=== PATIENT | female | born 1940 | race Caucasian/White ===

== ENCOUNTER 2017-05-08 18:14 | Emergency (ER) | payer OTHER, BC ==
[2017-05-08 18:29] VITALS: BP 132/59; PULSE 70; TEMP 98.8; BMI 33.5
--- NOTE | 2017-05-08 19:18 | PDOC ---
History of Present Illness - History of Present Illness Initial Comments: 05/08/17 19:18 The patient is a 77 year old female, with a significant past medical history of , who presents to the emergency department with right ankle pain and swelling for 2 days. She states she was going to bed on Sunday when she developed pain to her right ankle. The patient denies trauma. She reports her swelling has reduced after taking Aleve today. She denies any recent travels. She denies history of blood clots. She denies chest pain, shortness of breath, headache and dizziness. She denies fever, chills, nausea, vomit, diarrhea and constipation. She denies dysuria, frequency, urgency and hematuria. PCP - Dr. Robison PAST MEDICAL HISTORY: no significant history PAST SURGICAL HISTORY: no significant history FAMILY HISTORY: no pertinent history SOCIAL HISTORY: Pt lives with family and is employed. MEDICATIONS: reviewed ALLERGIES: As per nursing notes Adult ROS General: No fevers or chills, no weakness, no weight loss HEENT: No change in vision. No sore throat,. No ear pain CardioVascular: No chest pain or shortness of breath Respiratory:No cough, or wheezing. Gastrointestinal: no nausea, vomiting, diarrhea or constipation, No rectal bleeding Genitourinary: No dysuria, hematuria, or frequency Musculoskeletal: (+) right ankle pain and swelling. No joint or muscle pain or swelling Neurologic: No headache, vertigo, dizziness or loss of consciousness Psychiatric: nor depression Skin: No rashes or easy bruising Endocrine: no increased thirst or abnormal weight change Allergic: no skin or latex allergy All other systems reviewed and normal Adult Exam: General: Well-nourished well-developed individual, no acute distress HEENT: Throat: Normal, tonsils normal, no erythema or exudate Neck: Supple, no meningeal signs, no lymphadenopathy Eyes::Pupils equal reactive and round, extraocular motion intact Chest: Nontender to palpation Cardiac: S1-S2 normal, regular rate and rhythm, no murmurs rubs or gallops Respiratory: Lungs clear to auscultation bilateral Abdomen: Soft, nondistended, normal bowel sounds, nontender to palpation diffusely Extremities: (+) Mild swelling to the right foot, ankle and lower leg. Mild increase in warmth to her right ankle when compared to the left. No tender palpable cord. Pulses are normal. Warm, dry, no cyanosis, clubbing Skin: No rashes Neuro: Alert and oriented x3, nonfocal exam, grossly intact, normal gait Psych: Normal mood and affect <Ana Cabrera - Last Filed: 05/08/17 20:11> - General History Source: Patient Exam Limitations: No Limitations - History of Present Illness Initial Comments: 05/08/17 20:18 A portion of this note was documented by scribe services under my direction. I have reviewed the details of the note, within reason, and agree with the documentation. The case summary and management plan written by me. Assessment and plan: This is a 77-year-old female who comes in complaining of right lower extremity swelling and discomfort. 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 Patient also has a mildly elevated white count but no left shift. However patient's lower extremity is slightly warmer but no erythema. I will start patient on some Bactrim DS in case there is an early cellulitis and the patient has a primary care doctor she can follow-up with. <Janet Vega I - Last Filed: 05/08/17 20:31> - General Chief Complaint: Pain Stated Complaint: RT ANKLE, RT FOOT PAIN, SWELLING Time Seen by Provider: 05/08/17 19:02 Past History <Ana Cabrera - Last Filed: 05/08/17 20:11> - Past Medical History Anemia: No Asthma: Yes Cancer: Yes (THYROID?) Cardiac Disorders: No CVA: No COPD: No CHF: No Dementia: No Diabetes: Yes GI Disorders: Yes (GERD H/O COLONIC POLYP) Disorders: Yes (UTI) HTN: Yes Hypercholesterolemia: Yes Liver Disease: Yes (FATTY LIVER) Seizures: No Thyroid Disease: Yes - Surgical History Abdominal Surgery: Yes Appendectomy: No Cardiac Surgery: No Cholecystectomy: No Lung Surgery: No Neurologic Surgery: No Orthopedic Surgery: No - Psycho/Social/Smoking Cessation Hx Anxiety: No Suicidal Ideation: No Smoking Status: No Smoking History: Never smoked Have you smoked in the past 12 months: No Number of Cigarettes Smoked Daily: 0 Cigars Per Day: 0 Information on smoking cessation initiated: No Hx Alcohol Use: No Drug/Substance Use Hx: No Substance Use Type: None Hx Substance Use Treatment: No <Janet Vega I - Last Filed: 05/08/17 20:31> - Past Medical History Allergies/Adverse Reactions: Allergies Allergy/AdvReac Type Severity Reaction Status Date / Time clarithromycin [From Biaxin] Allergy Mild Itching Verified 05/08/17 18:17 ketorolac Allergy Mild Itching Verified 05/08/17 18:17 nitrofurantoin Allergy Verified 05/08/17 18:17 [From Macrobid] nitrofurantoin Allergy Verified 05/08/17 18:17 macrocrystalline [From Macrobid] Home Medications: Ambulatory Orders Amlodipine Besylate [Norvasc -] 10 mg PO DAILY 05/08/17 Aspirin [Aspirin EC] 81 mg PO DAILY 05/08/17 Benazepril/Hydrochlorothiazide [Benazepril-Hctz 20-12.5 mg Tab] 1 each PO BID Escitalopram Oxalate [Lexapro -] 10 mg PO DAILY 05/08/17 Esomeprazole Magnesium [Nexium 24Hr] 40 mg PO DAILY 05/08/17 Losartan Potassium [Cozaar] 100 mg PO DAILY 05/08/17 Meclizine HCl 25 mg PO TID 05/08/17 Metformin HCl [Metformin HCl ER] mg PO BID 05/08/17 Metoprolol Succinate [Toprol Xl] 50 mg PO DAILY 05/08/17 Phenobarb/Hyoscy/Atropine/Scop [ Elixir] 1 tsp PO Q4H PRN 05/08/17 Simvastatin 20 mg PO DAILY 05/08/17 Sulfamethoxazole/Trimethoprim [Bactrim DS -] 1 tab PO BID #14 tablet 05/08/17 *Physical Exam - Vital Signs Last Vital Signs Temp Pulse Resp BP Pulse Ox 98.8 F 70 18 132/59 96 05/08/17 18:15 05/08/17 18:15 05/08/17 18:15 05/08/17 18:15 05/08/17 18:15 <Ana Cabrera - Last Filed: 05/08/17 20:11> - Vital Signs Last Vital Signs Temp Pulse Resp BP Pulse Ox 98.8 F 70 18 132/59 96 05/08/17 18:15 05/08/17 18:15 05/08/17 18:15 05/08/17 18:15 05/08/17 18:15 <Janet Vega I - Last Filed: 05/08/17 20:31> ED Treatment Course - LABORATORY CBC & Chemistry Diagram: 05/08/17 17:30 - RADIOLOGY Radiograph Interpretation: 05/08/17 20:11 RLE venous doppler was negative for DVT at this time, however, there is evidence ofedema at the foot and two Hernandez's cysts. <Shaina Cabreraanda - Last Filed: 05/08/17 20:11> - LABORATORY CBC & Chemistry Diagram: 05/08/17 17:30 <Janet Vega I - Last Filed: 05/08/17 20:31> *DC/Admit/Observation/Transfer <Shaina Cabreraanda - Last Filed: 05/08/17 20:11> - Discharge Dispostion Admit: No <Janet Vega I - Last Filed: 05/08/17 20:31> Diagnosis at time of Disposition: Right leg swelling - Discharge Dispostion Disposition: HOME Condition at time of disposition: Stable - Prescriptions Prescriptions: Sulfamethoxazole/Trimethoprim [Bactrim DS -] 1 tab PO BID #14 tablet - Referrals Referrals: Nicola An MD [Primary Care Provider] - - Patient Instructions Additional Instructions: Try to elevate the leg as much as possible. Take Bactrim 1 tablet twice a day for for the next week. Follow-up with your primary care DrJudy next week if not improved. Return to the emergency department immediately with ANY new, persistent or worsening symptoms. Continue any medications as previously prescribed by your physician. You should follow up with your primary doctor as soon as possible regarding today's emergency department visit. . Please make sure your doctor reviews the results of your emergency evaluation. Thank you for coming to the Emergency Department today for your care. It was a pleasure to see you today. Please note that your evaluation is INCOMPLETE until you follow-up with your doctor.
[2017-05-08 20:05] LABS: BASOPHIL 0.6 % (0-2.0); EOSINOPHIL 1.4 % (0-4.5); MCH 28.1 pg (25.7-33.7); MCHC 33.7 g/dl (32.0-36.0); MEAN CELL VOLUME 83.4 fl (80-96); MEAN PLT VOLUME 8.5 fl (7.5-11.1); PLATELET COUNT 322 K/MM3 (134-434); RDW 13.6 % (11.6-15.6)
[2017-05-08] MEDS ORDERED: SULFAMETHOXAZOLE/TRIMETHOPRIM 800MG/160MG D.S. TABLET PO ONE (20:25)
[2017-05-08] MEDS ORDERED: SULFAMETHOXAZOLE/TRIMETHOPRIM 800MG/160MG D.S. TABLET ONE (20:26)
== END 2017-05-08 20:35 | disposition home or self-care (01) ==
LOC: FER 18:14
DX: M79.89 Other specified soft tissue disorders (principal); J45.909 Unspecified asthma, uncomplicated; K21.9 Gastro-esophageal reflux disease without esophagitis; I10 Essential (primary) hypertension; Z87.440 Personal history of urinary (tract) infections
CPT/HCPCS: 36415; 85025; 93971-TC; 99283-25

== ENCOUNTER 2017-12-18 20:03 | Emergency (ER) | payer OTHER, BC ==
[2017-12-18 20:12] VITALS: BMI 33.7
--- NOTE | 2017-12-18 20:12 | PDOC ---
History of Present Illness - General History Source: Patient Exam Limitations: No Limitations - History of Present Illness Initial Comments: 12/18/17 21:12 The patient is a 77 year old female with a significant past medical history of hernandez's cyst (few months ago) , arthritis, diabetes and cortisone knee shots who presents to the emergency department with acute right knee pain since yesterday. The patient reports that her right knee pain was a 10/10 in severity last night . She reports that she took 3 aleve pills with little relief.The patient reports taking her temperature at home and recorded it to be 101. It is noted that the patient uses a walking cane. The patient also reports right sinus pain with discharge. The patient denies any other complaints. PAST MEDICAL HISTORY: Arthritis, diabetes, cortisone knee shots PAST SURGICAL HISTORY: no significant history FAMILY HISTORY: no pertinent history SOCIAL HISTORY: none reported MEDICATIONS: As per nursing notes ALLERGIES: Clarithromycin, Ketorolac, Nitrofurantoin, Nitrofurantoin macrocystalline General: (+)fever . No chills, no weakness, no weight loss HEENT: (+) sinus pain.No change in vision. No sore throat,. No ear pain CardioVascular: No chest pain or shortness of breath Respiratory:No cough, or wheezing. Gastrointestinal: no nausea, vomiting, diarrhea or constipation, No rectal bleeding Genitourinary: No dysuria, hematuria, or frequency Musculoskeletal:(+) acute right knee pain No joint or muscle pain or swelling Neurologic: No headache, vertigo, dizziness or loss of consciousness Psychiatric: nor depression Skin: No rashes or easy bruising Endocrine: no increased thirst or abnormal weight change Allergic: no skin or latex allergy All other systems reviewed and normal General: Well-nourished well-developed individual, no acute distress HEENT: (+) tenderness on palpation of right frontal sinus. Throat: Normal, tonsils normal, no erythema or exudate Neck: Supple, no meningeal signs, no lymphadenopathy Eyes::Pupils equal reactive and round, extraocular motion intact Chest: Nontender to palpation Cardiac: S1-S2 normal, regular rate and rhythm, no murmurs rubs or gallops Respiratory: Lungs clear to auscultation bilateral Abdomen: Soft, nondistended, normal bowel sounds, nontender to palpation diffusely Extremities: (+) moderate edema from the knee down of the right lower extremity. Increased warmth with edema and tenderness to palpation anteriorly and medially . Palpable fullness in posterior knee that is not tender. Warm, dry, no cyanosis, or clubbing. Skin: No rashes Neuro: Alert and oriented x3, nonfocal exam, grossly intact, normal gait Psych: Normal mood and affect <Cinthya Angel - Last Filed: 12/18/17 21:12> - General History Source: Patient Exam Limitations: No Limitations - History of Present Illness Initial Comments: Medical decision making: This is a 77-year-old female who comes in complaining of right knee pain, thick greenish discharge from her sinuses, sinus pain and fevers. Patient was noted to have a fever here in the emergency room of 100.7. Will obtain workup including CBC, comp, PT, PTT, chest x-ray, EKG, Doppler ultrasound of the right knee, blood cultures, urine, urine cultures, Well hydrate patient with some gentle hydration at 200 mL per hour of normal saline Will medicate patient's pain with IV Tylenol Will reassess and reevaluate results of workup 12/18/17 22:04 Patient feels better post IV Tylenol. Patient ultrasound Doppler pending. Patient does have a mildly elevated white count of 13,000 but no left shift. Patient has been afebrile since she received the IV Tylenol 12/18/17 23:17 Reevaluation patient wants to go home, feels much better Assessment and plan: This is 68-year-old female who comes in complaining of a fever sinus discomfort and green discharge as well as some right knee pain. On my exam patient does have tenderness over her frontal and right maxillary sinuses. She was also noted to have a temperature 100.7 here in the emergency room. Patient is a cub-[id number]-xpcryyfty diabetic Her white count was mildly elevated but there was no left shift Her lactic acid was normal Patient was given some hydration and IV Tylenol and is back to her baseline. Ultrasound Doppler was done of the leg to rule out DVT there is a large Hernandez cyst but otherwise no DVT. On my exam the knee had some increase in warmth however patient said that the knee has been warm and painful over the last several weeks and she recently did receive a injection of steroids which were helping. I think most likely the knee is warm due to inflammation and not an infectious process. However I did tell patient I want her orthopedist who is treating her for the knee pain to evaluate her knee tomorrow as he knows how it has been over the past several weeks. Patient was given ceftriaxone IV antibiotics for her sinusitis and her urinary tract infection. Patient discharged home on Augmentin which should cover both the urine and the sinuses. Patient will be discharged home and follow-up with her primary care doctor <Janet Vega I - Last Filed: 12/18/17 23:26> - General Chief Complaint: Pain Stated Complaint: right leg pain,dry cough Time Seen by Provider: 12/18/17 20:06 Past History <Cinthya Angel - Last Filed: 12/18/17 21:12> - Past Medical History Anemia: No Asthma: Yes Cancer: Yes (THYROID?) Cardiac Disorders: No CVA: No COPD: No CHF: No Dementia: No Diabetes: Yes GI Disorders: Yes (GERD H/O COLONIC POLYP) Disorders: Yes (UTI) HTN: Yes Hypercholesterolemia: Yes Liver Disease: Yes (FATTY LIVER) Seizures: No Thyroid Disease: Yes - Surgical History Abdominal Surgery: Yes Appendectomy: No Cardiac Surgery: No Cholecystectomy: No Lung Surgery: No Neurologic Surgery: No Orthopedic Surgery: No - Suicide/Smoking/Psychosocial Hx Smoking Status: No Smoking History: Never smoked Have you smoked in the past 12 months: No Number of Cigarettes Smoked Daily: 0 Cigars Per Day: 0 Hx Alcohol Use: No Drug/Substance Use Hx: No Substance Use Type: None Hx Substance Use Treatment: No <Janet Vega I - Last Filed: 12/18/17 23:26> - Past Medical History Allergies/Adverse Reactions: Allergies Allergy/AdvReac Type Severity Reaction Status Date / Time clarithromycin [From Biaxin] Allergy Mild Itching Verified 12/18/17 20:07 ketorolac Allergy Mild Itching Verified 12/18/17 20:07 nitrofurantoin Allergy Verified 12/18/17 20:07 [From Macrobid] nitrofurantoin Allergy Verified 12/18/17 20:07 macrocrystalline [From Macrobid] morphine AdvReac Severe Verified 12/18/17 21:16 Home Medications: Ambulatory Orders Amlodipine Besylate [Norvasc -] 10 mg PO DAILY 05/08/17 Aspirin [Aspirin EC] 81 mg PO DAILY 05/08/17 Escitalopram Oxalate [Lexapro -] 10 mg PO DAILY 05/08/17 Losartan Potassium [Cozaar] 100 mg PO HS 05/08/17 Meclizine HCl 25 mg PO TID PRN 05/08/17 Metformin HCl [Metformin HCl ER] 1,000 mg PO BID 05/08/17 Phenobarb/Hyoscy/Atropine/Scop [ Elixir] 1 tsp PO Q4H PRN 05/08/17 Simvastatin 20 mg PO DAILY 05/08/17 Enalapril/Hydrochlorothiazide [Vaseretic 10-25 mg Tablet] 1 each PO BID Formoterol Fumarate [Foradil (Nf) -] 12 mcg IH BID PRN 12/18/17 Metoprolol Tartrate 25 mg PO BID 12/18/17 Omeprazole 20 mg PO DAILY 12/18/17 *Physical Exam - Vital Signs Last Vital Signs Temp Pulse Resp BP Pulse Ox 100.7 F H 81 18 127/60 98 12/18/17 20:55 12/18/17 20:06 12/18/17 20:06 12/18/17 20:06 12/18/17 20:06 <Cinthya Angel - Last Filed: 12/18/17 21:12> ED Treatment Course - LABORATORY CBC & Chemistry Diagram: 12/18/17 20:45 12/18/17 20:45 - Medications Given in the ED: ED Medications Discontinued Medications Generic Name Dose Route Start Last Admin Trade Name Shaila PRN Reason Stop Dose Admin Acetaminophen 1,000 mg 12/18/17 21:04 12/18/17 21:06 Ofirmev Injection - IVPB 12/18/17 21:05 1,000 mg ONCE ONE Administration Morphine Sulfate 4 mg 12/18/17 20:31 12/18/17 21:06 Morphine Injection - IVPUSH 12/18/17 20:32 Not Given ONCE ONE <Cinthya Angel - Last Filed: 12/18/17 21:12> - LABORATORY CBC & Chemistry Diagram: 12/18/17 20:45 12/18/17 20:45 <Janet Vega I - Last Filed: 12/18/17 23:26> *DC/Admit/Observation/Transfer - Attestations Scribe Attestion: 12/18/17 21:13 Documentation prepared by Cinthya Angel, acting as medical illustrator for Janet Vega MD. <Cinthya Angel - Last Filed: 12/18/17 21:12> - Discharge Dispostion Admit: No <Janet Vega I - Last Filed: 12/18/17 23:26> Diagnosis at time of Disposition: Cystitis Sinusitis Qualifiers: Sinusitis location: frontal Chronicity: acute Recurrence: not specified as recurrent Qualified Code(s): J01.10 - Acute frontal sinusitis, unspecified - Discharge Dispostion Disposition: HOME Condition at time of disposition: Stable - Patient Instructions Additional Instructions: Your urine shows a U also have a urinary and read tract infection in addition to the sinus infection. For the infection U can take one antibiotic that will cover both the urine and the sinuses. The antibiotic is Augmentin take it twice a day for 14 days. Tylenol or the prescription strength Aleve as needed for pain. Call Dr. Pro in the morning and get an appointment for him to evaluate your knee as soon as possible. Return to the emergency department immediately with ANY new, persistent or worsening symptoms. Continue any medications as previously prescribed by your physician. You should follow up with your primary doctor as soon as possible regarding today's emergency department visit. . Please make sure your doctor reviews the results of your emergency evaluation. Thank you for coming to the Emergency Department today for your care. It was a pleasure to see you today. Please note that your evaluation is INCOMPLETE until you follow-up with your doctor.
[2017-12-18] MEDS ORDERED: SODIUM CHLORIDE 1,000 ML IV STA (20:29)
[2017-12-18] MEDS ORDERED: morphine CARPU-JECT 4 MG/1 ML DISP.SYRIN IVPUSH ONE (20:31)
[2017-12-18] MEDS ORDERED: morphine SULFATE 4 MG/ML VIAL ONE (20:55)
[2017-12-18] MEDS ORDERED: ACETAMINOPHEN INJECTION 100 ML IVPB ONE (21:00)
[2017-12-18] MEDS ORDERED: ACETAMINOPHEN 1000 MG/100 ML VIAL (NON FORMULARY) IVPB ONE (21:04)
[2017-12-18 21:05] VITALS: TEMP 100.7
[2017-12-18 21:20] LABS: ACTIVATED PTT 27.6 SECONDS (24.0-38.9)
[2017-12-18 21:24] LABS: ALBUMIN 4.2 g/dl (3.5-5.0); ALK PHOS 55 U/L (32-92); ANION GAP 6 (8-16); BILIRUBIN,TOTAL 0.7 mg/dl (0.2-1.0); BLOOD UREA NITROGEN 21 mg/dl (7-18); CALCIUM 9.1 mg/dl (8.4-10.2); CHLORIDE 101 mmol/L (98-107); CO2 27 mmol/L (22-28); CREATININE 0.8 mg/dl (0.6-1.3); GLUCOSE,RANDOM 146 mg/dl (74-106); POTASSIUM 3.8 mmol/L (3.5-5.1); SGOT/AST 21 U/L (10-42); SGPT/ALT 17 U/L (10-40); SODIUM 134 mmol/L (136-145); TOT PROT 7.6 g/dl (6.4-8.3)
[2017-12-18 21:25] LABS: INR 1.23 (0.82-1.09); PROTHROMBIN TIME (PATIENT) 13.7 SEC (10.2-13.0)
[2017-12-18 22:00] LABS: BASO % 0.4 % (0-2.0); EOS % 1.7 % (0-4.5); HEMATOCRIT 35.9 % (32.4-45.2); HEMOGLOBIN 12.3 GM/dL (10.7-15.3); LYMPH % 19.4 % (8-40); MCH 28.6 pg (25.7-33.7); MCHC 34.2 g/dl (32.0-36.0); MEAN CELL VOLUME 83.5 fl (80-96); MEAN PLT VOLUME 8.9 fl (7.5-11.1); MONO % 11.2 % (3.8-10.2); NEUT % 67.3 % (42.8-82.8); PLATELET COUNT 321 K/MM3 (134-434); RDW 14.3 % (11.6-15.6); WHITE BLOOD COUNT 13.7 K/mm3 (4.0-10.0)
[2017-12-18] MEDS ORDERED: cefTRIAXone SODIUM 1 GM VIAL ONE (22:44)
[2017-12-18] MEDS ORDERED: CEFTRIAXONE 1,000 MG in DEXTROSE 5%-WATER - 50 ML IVPB ONE (22:45)
[2017-12-18 22:54] LABS: URINE APPEARANCE Clear; URINE BILIRUBIN Negative (NEGATIVE); URINE BLOOD 1+ (NEGATIVE); URINE COLOR YELLOW; URINE GLUCOSE (UA) Negative (NEGATIVE); URINE KETONE Negative (NEGATIVE); URINE LEUK ESTERASE TRACE (NEGATIVE); URINE NITRITE Positive (NEGATIVE); URINE PROTEIN 1+ (NEGATIVE); URINE UROBILINOGEN 0.2 (0.2-1.0)
[2017-12-18 23:03] LABS: EPI CELLS MODERATE /HPF; URINE WBC >100 (0-5)
[2017-12-18 23:04] LABS: URINE BACTERIA MANY /hpf (NEGATIVE)
[2017-12-18 23:37] VITALS: BP 127/63; PULSE 64
--- NOTE | 2017-12-19 09:25 | EKG ---
Test Reason : Blood Pressure : / mmHG Vent. Rate : 073 BPM Atrial Rate : 073 BPM P-R Int : 160 ms QRS Dur : 104 ms QT Int : 402 ms P-R-T Axes : 029 -30 016 degrees QTc Int : 442 ms NORMAL SINUS RHYTHM LEFT AXIS DEVIATION ABNORMAL ECG NO PREVIOUS ECGS AVAILABLE Confirmed by MAXI CHANEL, TEJAS ([id number]) on 12/19/2017 9:25:28 AM Referred By: DR CHAVARRIA Confirmed By:TEJAS GERMAN MD
== END 2017-12-18 23:47 | disposition home or self-care (01) ==
LOC: FER 20:03
PROC: 3E033NZ Introduction of Analgesics, Hypnotics, Sedatives into Peripheral Vein, Percutaneous Approach (ICD-10-PCS; principal; 2017-12-18)
PROC: 3E03329 Introduction of Other Anti-infective into Peripheral Vein, Percutaneous Approach (ICD-10-PCS; 2017-12-18)
PROC: 3E0337Z Introduction of Electrolytic and Water Balance Substance into Peripheral Vein, Percutaneous Approach (ICD-10-PCS; 2017-12-18)
DX: J01.10 Acute frontal sinusitis, unspecified (principal)
CPT/HCPCS: 36415; 71045-TC-FY; 80053; 81003; 81015; 83605; 85025; 85610; 85730; 86850; 86900; 86901; 87040; 87086; 87186; 93005; 93971-TC; 96361; 96365; 96375; 99283-25; J0131; J7030

== ENCOUNTER 2018-02-04 09:32 | Observation (INO) | payer OTHER, BC ==
[2018-02-04 09:45] VITALS: BMI 33.7
[2018-02-04] MEDS ORDERED: ONDANSETRON 4 MG/2 ML VIAL IVPUSH ONE ×2 (09:49→13:37)
[2018-02-04] MEDS ORDERED: SODIUM CHLORIDE 0.9% 500 ML INFUS.BAG IV ONE ×2 (09:49→12:14)
[2018-02-04] MEDS ORDERED: ACETAMINOPHEN 1000 MG/100 ML VIAL (NON FORMULARY) IVPB ONE (09:49)
--- NOTE | 2018-02-04 10:00 | PDOC ---
History of Present Illness - General Chief Complaint: Pain, Acute Stated Complaint: L FLANK PAIN & NAUSEA Time Seen by Provider: 02/04/18 09:38 - History of Present Illness Initial Comments: 02/04/18 09:50 78yo F hx HTN, NIDDM, HL, renal colic presents to the ED with sudden onset L flank pain radiating down to the L lower back with onset 2 hours [employer]. Pt reports symptoms began when she was struggling to pull herself up from bed. She reports associated nausea and dry mouth. She had the sensation that she had to have a bowel movement and thus tried to go to the bathroom but states only small amounts of stool came out. Denies blood or dark stool. No treatments tried. When the pain persisted, she presented to the ED. Pt was in her USOH prior to symptom onset, denies fevers, chills, vomiting, diarrhea, CP, SOB, rashes, dysuria, frequency, urgency. Past History - Past Medical History Allergies/Adverse Reactions: Allergies Allergy/AdvReac Type Severity Reaction Status Date / Time clarithromycin [From Biaxin] Allergy Mild Itching Verified 02/04/18 09:45 ketorolac Allergy Mild Itching Verified 02/04/18 09:45 nitrofurantoin Allergy Verified 02/04/18 09:45 [From Macrobid] nitrofurantoin Allergy Verified 02/04/18 09:45 macrocrystalline [From Macrobid] morphine AdvReac Severe Verified 02/04/18 09:45 Home Medications: Ambulatory Orders Amlodipine Besylate [Norvasc -] 10 mg PO DAILY 05/08/17 Aspirin [Aspirin EC] 81 mg PO DAILY 05/08/17 Escitalopram Oxalate [Lexapro -] 10 mg PO DAILY 05/08/17 Losartan Potassium [Cozaar] 100 mg PO HS 05/08/17 Metformin HCl [Metformin HCl ER] 1,000 mg PO BID 05/08/17 Simvastatin 20 mg PO DAILY 05/08/17 Enalapril/Hydrochlorothiazide [Vaseretic 10-25 mg Tablet] 1 each PO BID Metoprolol Tartrate 25 mg PO BID 12/18/17 Omeprazole 20 mg PO DAILY PRN 12/18/17 Albuterol Sulfate Inhaler - [Ventolin Hfa Inhaler -] 1 - 2 inh PO Q4H PRN Fluticasone/Salmeterol [Advair 250-50 Diskus] 1 each IH BID PRN 02/04/18 Anemia: No Asthma: Yes Cancer: Yes (THYROID?) Cardiac Disorders: No CVA: No COPD: No CHF: No Dementia: No Diabetes: Yes GI Disorders: Yes (GERD H/O COLONIC POLYP) Disorders: Yes (UTI) HTN: Yes Hypercholesterolemia: Yes Kidney Stones: Yes Liver Disease: Yes (FATTY LIVER) Seizures: No Thyroid Disease: Yes - Surgical History Abdominal Surgery: Yes Appendectomy: No Cardiac Surgery: No Cholecystectomy: No Lung Surgery: No Neurologic Surgery: No Orthopedic Surgery: No - Suicide/Smoking/Psychosocial Hx Smoking Status: No Smoking History: Never smoked Have you smoked in the past 12 months: No Number of Cigarettes Smoked Daily: 0 Cigars Per Day: 0 Hx Alcohol Use: Yes Drug/Substance Use Hx: No Substance Use Type: None Hx Substance Use Treatment: No Review of Systems - Review of Systems Comments:: 02/04/18 11:05 GENERAL/CONSTITUTIONAL: No fever or chills. No weakness. HEAD, EYES, EARS, NOSE AND THROAT: No change in vision. No ear pain or discharge. No sore throat. GASTROINTESTINAL: No vomiting, diarrhea or constipation. +flank pain +nausea GENITOURINARY: No dysuria, frequency, or change in urination. CARDIOVASCULAR: No chest pain or shortness of breath. RESPIRATORY: No cough, wheezing, or hemoptysis. MUSCULOSKELETAL: No joint or muscle swelling or pain. No neck or back pain. SKIN: No rash NEUROLOGIC: No headache, vertigo, loss of consciousness, or change in strength/ sensation. ENDOCRINE: No increased thirst. No abnormal weight change. HEMATOLOGIC/LYMPHATIC: No anemia, easy bleeding, or history of blood clots. ALLERGIC/IMMUNOLOGIC: No hives or skin allergy. *Physical Exam - Vital Signs Last Vital Signs Temp Pulse Resp BP Pulse Ox 98.0 F 79 18 174/82 100 02/04/18 09:38 02/04/18 09:38 02/04/18 09:38 02/04/18 09:38 02/04/18 09:38 - Physical Exam Comments: 02/04/18 11:08 GENERAL: Awake, alert, and fully oriented, in no acute distress HEAD: No signs of trauma EYES: PERRLA, EOMI, sclera anicteric, conjunctiva clear ENT: Auricles normal inspection, hearing grossly normal, nares patent, oropharynx clear without exudates. Moist mucosa NECK: Normal ROM, supple, no lymphadenopathy, JVD, or masses LUNGS: Breath sounds equal, clear to auscultation bilaterally. No wheezes, and no crackles HEART: Regular rate and rhythm, normal S1 and S2, no murmurs, rubs or gallops ABDOMEN: Soft, nontender, normoactive bowel sounds. No guarding, no rebound. No masses BACK: +mild L lumbar paraspinal ttp, no midline cervicial, thoracic, lumbar ttp EXTREMITIES: Normal range of motion, no edema. No clubbing or cyanosis. No cords, erythema, or tenderness NEUROLOGICAL: Normal speech, cranial nerves intact, 5/5 strength in all 4 extremities, normal sensation to light touch in all 4 extremities SKIN: Warm, Dry, normal turgor, no rashes or lesions noted. Heart Score/ECG Review #1 02/04/18 19:00 Twelve-lead EKG was performed and reviewed by me. Normal sinus rhythm, rate 78 normal axis and intervals. No ST elevations or T-wave inversions ED Treatment Course - LABORATORY CBC & Chemistry Diagram: 02/04/18 15:40 02/04/18 15:40 Medical Decision Making - Medical Decision Making 02/04/18 11:10 78yo F presents to the ED with sudden L flank pain after pulling herself up from bed this morning. Vitals with HTN likely 2/2 discomfort. Exam with L lumbar paraspinal ttp. Story consistent with MSK strain although it is unclear why pt also c/o abd distention, nausea, and urge to defecate. DDX includes renal colic vs colitis vs diverticulitis. Plan: -labs -UA -CT -symptom control -reassess 02/04/18 12:14 Mild leukocytosis, lactate 2.8. Pt s/p 1L NS, ordered for 2nd liter. Currently at [facility], will reassess 02/04/18 13:51 CTAP read pending, called radiology twice with no answer Pt with persistent waves of pain, does not want to try other medications for pain as she is concerned about her allergies. States she gets black and blues from morphine and can not take toradol. 02/04/18 15:24 CTAP read with no acute pathology. Given persistent pain and dry heaving, repeat ordered lactate/bmp/cbc and added trop/lipase. Discussed case with Dr. Mckinney from surgery who will evaluate. WIll admit pt 02/04/18 15:[address] Farris, pt admitted to med/surg obs. Case discussed in detail with admitting physician including history, physical exam and ancillary studies. Admitting physician has assumed care for the patient, will follow all pending diagnostics and will complete the evaluation and treatment. *DC/Admit/Observation/Transfer Diagnosis at time of Disposition: Abdominal pain - Discharge Dispostion Condition at time of disposition: Good Decision to Admit order: Yes - Referrals - Patient Instructions - Post Discharge Activity - Attestations Physician Attestion: 02/04/18 15:37 I, Dr. Antwan Barbour MD, attest that this document has been prepared under my direction and personally reviewed by me in its entirety. I further attest, that it accurately reflects all work, treatment, procedures and medical decision -making performed by me.
[2018-02-04] MEDS ORDERED: ACETAMINOPHEN INJECTION 100 ML IVPB ONE (10:05)
[2018-02-04] MEDS ORDERED: ONDANSETRON 4 MG/2 ML VIAL ONE ×2 (10:05→13:29)
[2018-02-04 10:14] LABS: BASO % 0.4 % (0-2.0); EOS % 1.3 % (0-4.5); HEMATOCRIT 39.2 % (32.4-45.2); LYMPH % 16.1 % (8-40); MCH 27.9 pg (25.7-33.7); MCHC 33.2 g/dl (32.0-36.0); MEAN CELL VOLUME 84.1 fl (80-96); MEAN PLT VOLUME 8.7 fl (7.5-11.1); MONO % 3.6 % (3.8-10.2); NEUT % 78.6 % (42.8-82.8); PLATELET COUNT 349 K/MM3 (134-434); RBC 4.66 M/mm3 (3.60-5.2); RDW 13.6 % (11.6-15.6); WHITE BLOOD COUNT 11.4 K/mm3 (4.0-10.8)
[2018-02-04 10:56] LABS: ALBUMIN 4.5 g/dl (3.5-5.0); ALK PHOS 61 U/L (32-92); ANION GAP 11 (8-16); BLOOD UREA NITROGEN 26 mg/dl (7-18); CHLORIDE 98 mmol/L (98-107); CO2 26 mmol/L (22-28); CREATININE 0.9 mg/dl (0.6-1.3); GLUCOSE,RANDOM 228 mg/dl (74-106); SGOT/AST 25 U/L (10-42); SGPT/ALT 18 U/L (10-40); SODIUM 135 mmol/L (136-145); TOT PROT 7.8 g/dl (6.4-8.3)
[2018-02-04 11:06] LABS: BILIRUBIN,TOTAL < 0.5 mg/dl (0.2-1.0)
[2018-02-04 11:41] LABS: URINE APPEARANCE Clear; URINE BILIRUBIN Negative (NEGATIVE); URINE GLUCOSE (UA) Negative (NEGATIVE); URINE KETONE Negative (NEGATIVE); URINE NITRITE Negative (NEGATIVE); URINE UROBILINOGEN 0.2 (0.2-1.0)
[2018-02-04 11:50] LABS: URINE BLOOD Trace-intact (NEGATIVE); URINE COLOR YELLOW; URINE LEUK ESTERASE TRACE (NEGATIVE); URINE PROTEIN 2+ (NEGATIVE)
[2018-02-04 13:03] LABS: EPI CELLS 0-3 /HPF
[2018-02-04 16:29] LABS: ANION GAP 12 (8-16); BLOOD UREA NITROGEN 20 mg/dl (7-18); CALCIUM 9.3 mg/dl (8.4-10.2); CHLORIDE 98 mmol/L (98-107); CO2 23 mmol/L (22-28); GLUCOSE,RANDOM 206 mg/dl (74-106); POTASSIUM 3.8 mmol/L (3.5-5.1); SODIUM 133 mmol/L (136-145)
[2018-02-04 16:30] LABS: HEMATOCRIT 39.3 % (32.4-45.2); HEMOGLOBIN 13.1 GM/dl (10.7-15.3); MCH 27.9 pg (25.7-33.7); MCHC 33.5 g/dl (32.0-36.0); MEAN CELL VOLUME 83.4 fl (80-96); MEAN PLT VOLUME 9.6 fl (7.5-11.1); PLATELET COUNT 268 K/MM3 (134-434); RBC 4.71 M/mm3 (3.60-5.2); RDW 13.3 % (11.6-15.6); WHITE BLOOD COUNT 13.5 K/mm3 (4.0-10.8)
[2018-02-04 16:40] LABS: CREATININE < 0.8 mg/dl (0.6-1.3)
--- NOTE | 2018-02-04 18:48 | CONSULT ---
Consult Consult Specialty:: General Surgery Referred by:: Antwan Barbour Reason for Consultation:: L flank pain radiating around down L groin - History of Present Illness Chief Complaint: L flank pain radiating around down left groin, nausea no vomiting History of Present Illness: 78 yo morbidly obese F diabetic with HTN, HLD, asthma, GERD, IBS (tends to constipation but better with probiotic), h/o right urolithiasis many years ago, h/o thyroid CA s/p hemithyroidectomy (no iodine tx), anxiety, s/p hysterectomy, presented to ER with acute and severe pain in left posterior hip/flank initially , which occurred as she was getting up out of bed this morning (had been up several times to urinate without pain), and then began radiating around anteriorly and down front of left hip and toward groin. It was associated with nausea and burping, but no vomiting, just very dry feeling in chest and throat, unable to get anything up. She had soft BM this morning and has had no burning or pain with urination, no hematuria. Had coffee this am with milk and sugar and a biscuit (last po). She had trouble walking because of the pain, and had waves of chills and feelings of warmth in her abdomen. In ER, she was afebrile, with wbc 11 initially, BUN/Cr 26/0.9, glucose 228, lactate 2.8, normal LFTs, and UA showing 2+ protein, few red cells and few white cells. CT was done with IV but no oral contrast, (reviewed in detail with Dr. Paez, radiologist) showing no evidence of urolithiasis, no hydronephrosis, no bowel obstruction, no appendicitis, no diverticulitis, no hernia, no acute bony abnormalities, no acute spinal/disc abnormalities, + degenerative bony changes, small left ovarian cyst, slight increase in size of small left adrenal nodule, distended bladder (she has voided since), absent uterus. Her pain persisted after IV Tylenol and she was later given a Percocet, now with some improvement in her pain. Labs were repeated, and she has been admitted for observation to medicine. Surgery was asked to evaluate. She is seen and examined in her room with daughter and [id number] at bedside. Pain is still present, but more uncomfortable now than the acute pain she initially had. No current nausea. She notes having had a URI about a month ago she took antibiotics for, and still feels some residual chest congestion at times, but is overall improved a great deal. She describes the tract of pain as starting posteriorly and following up around the iliac crest anteriorly and back down toward the groin. She takes some of her home medication as needed only : Nexium, asthma inhaler; she states her Lexapro is 5mg daily, and she does not routinely check her glucose at home, but knows her last A1C was about 6. 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, left ruptured); walks with cane when back pain is bad) Endocrine: Yes: Diabetes Mellitus, Other (h/o thyroid CA (?type) s/p hemithyroidectomy as only treatment) - Past Surgical History Past Surgical History: Yes: Hysterectomy Additional Surgical History: hemithyroidectomy - Alcohol/Substance Use Hx Alcohol Use: Yes (rare) History of Substance Use: reports: None - Smoking History Smoking history: Never smoked Have you smoked in the past 12 months: No Aproximately how many cigarettes per day: 0 - Social History ADL: Independent Home Medications - Allergies Allergies/Adverse Reactions: Allergies Allergy/AdvReac Type Severity Reaction Status Date / Time clarithromycin [From Biaxin] Allergy Mild Itching Verified 02/04/18 09:45 ketorolac Allergy Mild Itching Verified 02/04/18 09:45 nitrofurantoin Allergy Verified 02/04/18 09:45 [From Macrobid] nitrofurantoin Allergy Verified 02/04/18 09:45 macrocrystalline [From Macrobid] morphine AdvReac Severe Verified 02/04/18 09:45 - Home Medications Home Medications: Ambulatory Orders Amlodipine Besylate [Norvasc -] 10 mg PO DAILY 05/08/17 Aspirin [Aspirin EC] 81 mg PO DAILY 05/08/17 Escitalopram Oxalate [Lexapro -] 10 mg PO DAILY 05/08/17 Losartan Potassium [Cozaar] 100 mg PO HS 05/08/17 Metformin HCl [Metformin HCl ER] 1,000 mg PO BID 05/08/17 Simvastatin 20 mg PO DAILY 05/08/17 Enalapril/Hydrochlorothiazide [Vaseretic 10-25 mg Tablet] 1 each PO BID Metoprolol Tartrate 25 mg PO BID 12/18/17 Omeprazole 20 mg PO DAILY PRN 12/18/17 Albuterol Sulfate Inhaler - [Ventolin Hfa Inhaler -] 1 - 2 inh PO Q4H PRN Fluticasone/Salmeterol [Advair 250-50 Diskus] 1 each IH BID PRN 02/04/18 Family Disease History - Family Disease History Family Disease History: Diabetes: Father, Mother, Heart Disease: Father, Mother Other Family History: granddaughter of lymphoma Review of Systems - Review of Systems Constitutional: reports: Chills. denies: Fever Eyes: denies: Blurred Vision, Recent Change in Vision HENT: denies: Difficult Swallowing, Throat Pain Neck: denies: Swollen Glands, Tenderness Cardiovascular: denies: Chest Pain, Palpitations Respiratory: reports: Other (feels some residual chest congestion from URI about a month ago, still gets up some mucus at times). denies: Cough, SOB Gastrointestinal: reports: Abdominal Pain (with hpi, ? abdominal vs hip?), Constipation (tends to, but last BM was soft this am), Nausea (with hpi). denies: Diarrhea, Vomiting Genitourinary: denies: Burning, Dysuria, Hematuria Musculoskeletal: reports: Back Pain (chronic), Joint Pain (chronic - knees, etc) . denies: Muscle Pain Integumentary: denies: Change in Color, Rash Neurological: denies: Dizziness, Headache, Unsteady Gait (uses cane when back pain is bad) Psychiatric: reports: Anxiety. denies: Depression Physical Exam Vital Signs: Vital Signs Temperature 97.6 F 02/04/18 18:15 Pulse Rate 82 02/04/18 18:15 Respiratory Rate 18 02/04/18 13:30 Blood Pressure 140/62 06/04/18 18:15 O2 Sat by Pulse Oximetry (%) 97 02/04/18 13:30 Constitutional: Yes: No Distress, Calm, Obese Eyes: Yes: Conjunctiva Clear, EOM Intact HENT: Yes: Atraumatic, Normocephalic Neck: Yes: Supple, Trachea Midline, Other (healed thyroid scar) Cardiovascular: Yes: Regular Rate and Rhythm, Tachycardia (slight), Murmur ( systolic) Respiratory: Yes: Regular, CTA Bilaterally Gastrointestinal: Yes: Normal Bowel Sounds, Soft, Abdomen, Obese, Tenderness ( mild bilateral lower quadrant, suprapubic, no guarding/rebound, less than over left hip/flank) ...Rectal Exam: Yes: Deferred Renal/: No: CVA Tenderness - Left (no tenderness to percussion over left kidney), CVA Tenderness - Right Musculoskeletal: Yes: Other (tender over left posterior, lateral flank and iliac crest, (lesser) anterior hip, no direct tenderness at groin/inguinal region). No: Back Pain (no direct spinal tenderness) Extremities: No: Cool, Cyanosis Edema: No Peripheral Pulses WNL: Yes Integumentary: No: Jaundice, Rash Neurological: Yes: Alert, Oriented Psychiatric: Yes: Alert, Oriented Labs: CBC, BMP 02/04/18 15:40 02/04/18 15:40 CMP Sodium 133 mmol/L (136-145) L 02/04/18 15:40 Potassium 3.8 mmol/L (3.5-5.1) 02/04/18 15:40 Chloride 98 mmol/L (98-107) 02/04/18 15:40 Carbon Dioxide 23 mmol/L (22-28) 02/04/18 15:40 Anion Gap 12 (8-16) 02/04/18 15:40 BUN 20 mg/dl (7-18) H D 02/04/18 15:40 Creatinine < 0.8 mg/dl (0.6-1.3) 02/04/18 15:40 Creat Clearance w eGFR > 60 (>60) 02/04/18 09:55 Random Glucose 206 mg/dl (74-106) H 02/04/18 15:40 Lactic Acid 2.8 mmol/L (0.0-2.0) H* 02/04/18 15:40 Calcium 9.3 mg/dl (8.4-10.2) 02/04/18 15:40 Total Bilirubin < 0.5 mg/dl (0.2-1.0) D 02/04/18 09:55 AST 25 U/L (10-42) 02/04/18 09:55 ALT 18 U/L (10-40) 02/04/18 09:55 Alkaline Phosphatase 61 U/L (32-92) 02/04/18 09:55 Troponin I 0.04 ng/ml (0.00-0.06) 02/04/18 15:40 Total Protein 7.8 g/dl (6.4-8.3) 02/04/18 09:55 Albumin 4.5 g/dl (3.5-5.0) 02/04/18 09:55 Lipase 128 U/L (73-393) 02/04/18 15:40 lactate 2.8 --> 2.8 after 2L saline glucose 228 --> 206 BUN down from 26 Cr was 0.9 wbc up from 11 Na was 135 (likely related to glucose elevation) Urine Test Results Urine Color Yellow 02/04/18 11:13 Urine Appearance Clear 02/04/18 11:13 Urine pH 6.0 (4.5-8) 02/04/18 11:13 Ur Specific [place] 1.020 (1.005-1.025) 02/04/18 11:13 Urine Protein 2+ (NEGATIVE) H 02/04/18 11:13 Urine Glucose (UA) Negative (NEGATIVE) 02/04/18 11:13 Urine Ketones Negative (NEGATIVE) 02/04/18 11:13 Urine Blood Trace-intact (NEGATIVE) H 02/04/18 11:13 Urine Nitrite Negative (NEGATIVE) 02/04/18 11:13 Urine Bilirubin Negative (NEGATIVE) 02/04/18 11:13 Ur Leukocyte Esterase Trace (NEGATIVE) H 02/04/18 11:13 Urine RBC 3-5 /hpf (0-3) 02/04/18 11:13 Urine WBC 5-10 (0-5) 02/04/18 11:13 Ur Epithelial Cells 0-3 /HPF 02/04/18 11:13 Imaging - Results Cat Scan: Report Reviewed, Image Reviewed (see hpi for details - personally reviewed) Problem List - Problems (1) Left flank pain Assessment/Plan: pain/tenderness seem to be mostly left flank/hip/musculoskeletal or maybe neurologic in etiology? reproducible with pressure over iliac crest posterior/lateral and anterior hip no actual abdominal pain, minimal tenderness, more likely referent to left hip no evidence of urolithiasis on CT, though tiny, nonobstructing stone could be missed - not likely to cause this much pain no evidence of bowel pathology, no general surgical issues identified ok for po intake consider neuro or ortho consultation pending clinical course consider physical therapy to see Dr. Farris aware will remain available for questions as needed Thank you for the opportunity to participate in the care of this patient. Code(s): R10.9 - UNSPECIFIED ABDOMINAL PAIN (2) Left hip pain Code(s): M25.552 - PAIN IN LEFT HIP (3) LLQ pain Code(s): R10.32 - LEFT LOWER QUADRANT PAIN (4) H/O renal calculi Code(s): Z87.442 - PERSONAL HISTORY OF URINARY CALCULI (5) Diabetes mellitus with hyperglycemia, without long-term current use of insulin Code(s): E11.65 - TYPE 2 DIABETES MELLITUS WITH HYPERGLYCEMIA Qualifiers: Diabetes mellitus type: type 2 Qualified Code(s): E11.65 - Type 2 diabetes mellitus with hyperglycemia
[2018-02-04] MEDS ORDERED: SODIUM CHLORIDE 1,000 ML IV SCH (22:15)
--- NOTE | 2018-02-04 23:21 | HP ---
CHIEF COMPLAINT: left flank pain PCP: Jeff HISTORY OF PRESENT ILLNESS: This is an 78 year old female with a significant past medical history of HTN, DM , renal colic who presented to the ED suddent onset left flank, low back pain. She states the pain started when she was getting out of bed. She also reports nausea and dry heaves as well as increased burping. She states the pain radiated around to her abdomen and groin. ER course was notable for: (1) CT abd/pel without acute findings (2) WBC 13.5 (3) lactic acid 2.8 Recent Travel: pt denies PAST MEDICAL HISTORY: HTN, HLD, NIDDM, GERD, fatty liver, colon polyp, renal colic, hypothyroidism PAST SURGICAL HISTORY: hysterectomy, tonsillectomy, partial thyroidectomy Social History: Smoking: pt denies Alcohol: pt denies Drugs: pt denies Family History: mother age 93, DM, HTN father age 90, heart trouble, h/o [place] age 40 siblings with HTN, DM Allergies clarithromycin [From Biaxin] Allergy (Mild, Verified 02/04/18 09:45) Itching ketorolac Allergy (Mild, Verified 02/04/18 09:45) Itching nitrofurantoin [From Macrobid] Allergy (Verified 02/04/18 09:45) nitrofurantoin macrocrystalline [From Macrobid] Allergy (Verified 02/04/18 09:45 ) morphine Adverse Reaction (Severe, Verified 02/04/18 09:45) PT REPORTS TURNS BLUE.MD MADE AWARE. HOME MEDICATIONS: 3 Medication Instructions Recorded Amlodipine Besylate [Norvasc -] 10 mg PO DAILY 05/08/17 Aspirin [Aspirin EC] 81 mg PO DAILY 05/08/17 Escitalopram Oxalate [Lexapro -] 10 mg PO DAILY 05/08/17 Losartan Potassium [Cozaar] 100 mg PO HS 05/08/17 Metformin HCl [Metformin HCl ER] 1,000 mg PO BID 05/08/17 Simvastatin 20 mg PO DAILY 05/08/17 Enalapril/Hydrochlorothiazide 1 each PO BID 12/18/17 [Vaseretic 10-25 mg Tablet] Metoprolol Tartrate 25 mg PO BID 12/18/17 Omeprazole 20 mg PO DAILY PRN 12/18/17 Albuterol Sulfate Inhaler - 1 - 2 inh PO Q4H PRN 02/04/18 [Ventolin Hfa Inhaler -] Fluticasone/Salmeterol [Advair 1 each IH BID PRN 02/04/18 250-50 Diskus] REVIEW OF SYSTEMS CONSTITUTIONAL: Absent: fever, chills, diaphoresis, generalized weakness, malaise, loss of appetite, weight change HEENT: Absent: rhinorrhea, nasal congestion, throat pain, throat swelling, difficulty swallowing, mouth swelling, ear pain, eye pain, visual changes CARDIOVASCULAR: Absent: chest pain, syncope, palpitations, irregular heart rate, lightheadedness , peripheral edema RESPIRATORY: Absent: cough, shortness of breath, dyspnea with exertion, orthopnea, wheezing, stridor, hemoptysis GASTROINTESTINAL: Present: abdominal pain, nausea, vomiting Absent: abdominal distension, diarrhea, constipation, melena, hematochezia GENITOURINARY: Presente: flank pain, frequency Absent: dysuria, urgency, hesitancy, hematuria, genital pain MUSCULOSKELETAL: Absent: myalgia, arthralgia, joint swelling, back pain, neck pain SKIN: Absent: rash, itching, pallor HEMATOLOGIC/IMMUNOLOGIC: Absent: easy bleeding, easy bruising, lymphadenopathy, frequent infections ENDOCRINE: Absent: unexplained weight gain, unexplained weight loss, heat intolerance, cold intolerance NEUROLOGIC: Absent: headache, focal weakness or paresthesias, dizziness, unsteady gait, seizure, mental status changes, bladder or bowel incontinence PSYCHIATRIC: Absent: anxiety, depression, suicidal or homicidal ideation, hallucinations. PHYSICAL EXAMINATION Vital Signs - 24 hr 3 02/04/18 02/04/18 02/04/18 09:38 13:30 15:55 Temperature 98.0 F 97.7 F Pulse Rate 79 Pulse Rate [ 82 Right Radial] Respiratory 18 18 Rate Blood Pressure 174/82 Blood Pressure 142/62 [Left Arm] O2 Sat by Pulse 100 97 Oximetry (%) 3 02/04/18 02/04/18 18:15 18:50 Temperature 97.6 F 97.6 F Pulse Rate 82 82 Pulse Rate [ Right Radial] Respiratory 18 Rate Blood Pressure 140/62 140/62 Blood Pressure [Left Arm] O2 Sat by Pulse Oximetry (%) GENERAL: Awake, alert, and fully oriented, in no acute distress. HEAD: Normal with no signs of trauma. EYES: Pupils equal, round and reactive to light, extraocular movements intact, sclera anicteric, conjunctiva clear. No lid lag. EARS, NOSE, THROAT: Ears normal, nares patent, oropharynx clear without exudates. Moist mucous membranes. NECK: Normal range of motion, supple without lymphadenopathy, JVD, or masses. LUNGS: Breath sounds equal, clear to auscultation bilaterally. No wheezes, and no crackles. No accessory muscle use. HEART: Regular rate and rhythm, normal S1 and S2 without murmur, rub or gallop. ABDOMEN: Soft, nontender, not distended, normoactive bowel sounds, no guarding, no rebound, no masses. No hepatomegaly or splenomegaly. MUSCULOSKELETAL: Normal range of motion at all joints. No bony deformities or tenderness. No CVA tenderness. no pain on palpation SI joint UPPER EXTREMITIES: 2+ pulses, warm, well-perfused. No cyanosis. No clubbing. No peripheral edema. LOWER EXTREMITIES: 2+ pulses, warm, well-perfused. No calf tenderness. No peripheral edema. NEUROLOGICAL: Cranial nerves II-XII intact. Normal speech. PSYCHIATRIC: Cooperative. Good eye contact. Appropriate mood and affect. SKIN: Warm, dry, normal turgor, no rashes or lesions noted, normal capillary refill. Laboratory Results - last 24 hr 3 02/04/18 02/04/18 02/04/18 09:55 09:55 09:55 WBC 11.4 H RBC 4.66 Hgb 13.0 D Hct 39.2 D MCV 84.1 MCH 27.9 MCHC 33.2 RDW 13.6 Plt Count 349 MPV 8.7 Neutrophils % 78.6 Lymphocytes % 16.1 Monocytes % 3.6 L Eosinophils % 1.3 Basophils % 0.4 Sodium 135 L Potassium 4.0 Chloride 98 Carbon Dioxide 26 Anion Gap 11 BUN 26 H D Creatinine 0.9 Creat Clearance w eGFR > 60 POC Glucometer Random Glucose 228 H D Lactic Acid 2.8 H* Calcium 10.0 Total Bilirubin < 0.5 D AST 25 ALT 18 Alkaline Phosphatase 61 Troponin I Total Protein 7.8 Albumin 4.5 Lipase Urine Color Urine Appearance Urine pH Ur Specific [place] Urine Protein Urine Glucose (UA) Urine Ketones Urine Blood Urine Nitrite Urine Bilirubin Urine Urobilinogen Ur Leukocyte Esterase Urine RBC Urine WBC Ur Epithelial Cells 3 Urine Color Yellow 02/04/18 11:13 Urine Appearance Clear 02/04/18 11:13 Urine pH 6.0 (4.5-8) 02/04/18 11:13 Ur Specific [place] 1.020 (1.005-1.025) 02/04/18 11:13 Urine Protein 2+ (NEGATIVE) H 02/04/18 11:13 Urine Glucose (UA) Negative (NEGATIVE) 02/04/18 11:13 Urine Ketones Negative (NEGATIVE) 02/04/18 11:13 Urine Blood Trace-intact (NEGATIVE) H 02/04/18 11:13 Urine Nitrite Negative (NEGATIVE) 02/04/18 11:13 Urine Bilirubin Negative (NEGATIVE) 02/04/18 11:13 Ur Leukocyte Esterase Trace (NEGATIVE) H 02/04/18 11:13 Urine RBC 3-5 /hpf (0-3) 02/04/18 11:13 Urine WBC 5-10 (0-5) 02/04/18 11:13 Ur Epithelial Cells 0-3 /HPF 02/04/18 11:13 3 02/04/18 02/04/18 02/04/18 02/04/18 15:40 15:40 15:40 22:37 WBC 13.5 H RBC 4.71 Hgb 13.1 Hct 39.3 MCV 83.4 MCH 27.9 MCHC 33.5 RDW 13.3 Plt Count 268 MPV 9.6 Neutrophils % Lymphocytes % Monocytes % Eosinophils % Basophils % Sodium 133 L Potassium 3.8 Chloride 98 Carbon Dioxide 23 Anion Gap 12 BUN 20 H D Creatinine < 0.8 Creat Clearance w eGFR POC Glucometer 152 Random Glucose 206 H Lactic Acid 2.8 H* Calcium 9.3 Total Bilirubin AST ALT Alkaline Phosphatase Troponin I 0.04 Total Protein Albumin Lipase 128 Urine Color Urine Appearance Urine pH Ur Specific [place] Urine Protein Urine Glucose (UA) Urine Ketones Urine Blood Urine Nitrite Urine Bilirubin Urine Urobilinogen Ur Leukocyte Esterase Urine RBC Urine WBC Ur Epithelial Cells Radiology Reports CT abd/pelvis with IV contrast IMPRESSION: No CT evidence of acute diverticulitis or an obstructing urinary tract calculus. In comparison to a 2008 CT study interval development of a 2 x 1.7 cm left ovarian cyst is noted. Correlation with 3 month follow-up CT or MRI is suggested to document stability and lack of developing pathology. Interval mild enlargement of a left adrenal adenoma is seen currently measuring 3 x 1.7 cm, previously 2.5 x 1.7 cm. Reported By: Jean Paez MD 02/04/18 1513 ASSESSMENT/PLAN: 78yF with PMH HTN, HLD, NIDDM, GERD, fatty liver, colon polyp, renal colic, hypothyroidism presented to the ED with left flank pain. Left flank pain - no evidence of acute abdominal pathology - ? musculoskeletal, ? ovarian cyst - surgery consult appreciated - clear liquid diet lactic acidosis - likely type b due to metformin - hold metformin - repeat lactic acid in am UTI - pt reports increased frequency, denies dysuria, will treat - follow c/s left adrenal adenoma - outpatient follow up with PCP HTN/HLD - cont home meds hypothyroid - cont synthroid, check tsh DVT PPX - defer heparin, anticipated LOS less than 48h FEN - NS @ 75cc/hr - bmp in am - clear liquid diet as tolerated Dispo: Pt currently requires further observation for management of her emergent condition. Visit type - Emergency Visit Emergency Visit: Yes ED Registration Date: 02/04/18 Care time: The patient presented to the Emergency Department on the above date and was hospitalized for further evaluation of their emergent condition. - New Patient This patient is new to me today: Yes Date on this admission: 02/04/18 - Critical Care Critical Care patient: No Hospitalist Screening - Colonoscopy Questionnaire Colonoscopy Questionnaire: Colonoscopy Questionnaire - Patient: 50 - 75 years old and never had a screening colonoscopy: No History of colon or rectal polyps, or CA: Yes History of IBD, Crohn's disease or UC: No History of abdominal radiation therapy as a child: No - Relative: 1 with colon or rectal CA, or polyps at age 60 or younger: No Colon or rectal CA diagnosed at age 45 or younger: No Multiple relatives with colon or rectal CA: No - Outcome: Screening Result: Positive Screen
[2018-02-04] MEDS ORDERED: PANTOPRAZOLE 20 MG TABLET (FP) PO PRN (23:39)
[2018-02-05] MEDS ORDERED: CEFTRIAXONE 1 G/50 ML PREMIX 50 ML IVPB ONE (00:34)
[2018-02-05] MEDS ORDERED: ONDANSETRON 4 MG/2 ML VIAL ONE (01:27)
[2018-02-05] MEDS ORDERED: ONDANSETRON 4 MG/2 ML VIAL IVPUSH ONE (01:41)
[2018-02-05] MEDS: INSULIN SLIDING SCALE (NOVOLOG) 1 VIAL SQ SCH ×2 (06:20→22:12)
[2018-02-05 08:57] LABS: ANION GAP 9 (8-16); BLOOD UREA NITROGEN 15 mg/dl (7-18); CALCIUM 8.9 mg/dl (8.4-10.2); CHLORIDE 98 mmol/L (98-107); CO2 27 mmol/L (22-28); GLUCOSE,RANDOM 162 mg/dl (74-106); POTASSIUM 3.4 mmol/L (3.5-5.1); SODIUM 134 mmol/L (136-145)
[2018-02-05 09:03] LABS: BASO % 0.4 % (0-2.0); EOS % 0.1 % (0-4.5); HEMOGLOBIN 12.4 GM/dl (10.7-15.3); LYMPH % 16.1 % (8-40); MCHC 34.6 g/dl (32.0-36.0); MEAN CELL VOLUME 83.8 fl (80-96); MEAN PLT VOLUME 9.2 fl (7.5-11.1); NEUT % 77.4 % (42.8-82.8); PLATELET COUNT 365 K/MM3 (134-434); RDW 13.6 % (11.6-15.6); WHITE BLOOD COUNT 13.1 K/mm3 (4.0-10.8)
--- NOTE | 2018-02-05 09:04 | PN ---
Physical Exam: SUBJECTIVE: Patient seen and examined, patient reports lower back pain and feeling bloated, patient is ambulatory at bedside OBJECTIVE: patient is a 78-year-old female past medical history of HTN, HLD, NIDDM, GERD, fatty liver, colon polyp, renal colic, hypothyroidism. patient was admitted for an emergency department observation for emergent condition Vital Signs Period Temp Pulse Resp BP Sys/Lares Pulse Ox Last 24 Hr 97.6 F-98.2 F 79-90 18-20 130-174/50-82 92-100 GENERAL: The patient is awake, alert, and fully oriented, in no acute distress. HEAD: Normal with no signs of trauma. EYES: PERRL, extraocular movements intact, sclera anicteric, conjunctiva clear. No ptosis. ENT: Ears normal, nares patent, oropharynx clear without exudates, moist mucous membranes. NECK: Trachea midline, full range of motion, supple. LUNGS: Breath sounds equal, clear to auscultation bilaterally, no wheezes, no crackles, no accessory muscle use. HEART: Regular rate and rhythm, S1, S2 without murmur, rub or gallop. ABDOMEN: Soft, nontender, nondistended, normoactive bowel sounds, no guarding, no rebound, no hepatosplenomegaly, no masses. EXTREMITIES: 2+ pulses, warm, well-perfused, no edema. MS: point tenderness noted to the left sciatic notc hpositive SLR of 45 to the left lower extremity NEUROLOGICAL: Cranial nerves II through XII grossly intact. Normal speech, steady gait noted observed. PSYCH: Normal mood, normal affect. SKIN: Warm, dry, normal turgor, no rashes or lesions noted Laboratory Results - last 24 hr 02/04/18 02/04/18 02/04/18 09:55 09:55 09:55 WBC 11.4 H RBC 4.66 Hgb 13.0 D Hct 39.2 D MCV 84.1 MCH 27.9 MCHC 33.2 RDW 13.6 Plt Count 349 MPV 8.7 Neutrophils % 78.6 Lymphocytes % 16.1 Monocytes % 3.6 L Eosinophils % 1.3 Basophils % 0.4 Sodium 135 L Potassium 4.0 Chloride 98 Carbon Dioxide 26 Anion Gap 11 BUN 26 H D Creatinine 0.9 Creat Clearance w eGFR > 60 POC Glucometer Random Glucose 228 H D Lactic Acid 2.8 H* Calcium 10.0 Total Bilirubin < 0.5 D AST 25 ALT 18 Alkaline Phosphatase 61 Troponin I Total Protein 7.8 Albumin 4.5 Lipase Urine Color Urine Appearance Urine pH Ur Specific [place] Urine Protein Urine Glucose (UA) Urine Ketones Urine Blood Urine Nitrite Urine Bilirubin Urine Urobilinogen Ur Leukocyte Esterase Urine RBC Urine WBC Ur Epithelial Cells 02/04/18 02/04/18 02/04/18 11:13 15:40 15:40 WBC RBC Hgb Hct MCV MCH MCHC RDW Plt Count MPV Neutrophils % Lymphocytes % Monocytes % Eosinophils % Basophils % Sodium Potassium Chloride Carbon Dioxide Anion Gap BUN Creatinine Creat Clearance w eGFR POC Glucometer Random Glucose Lactic Acid 2.8 H* Calcium Total Bilirubin AST ALT Alkaline Phosphatase Troponin I 0.04 Total Protein Albumin Lipase Urine Color Yellow Urine Appearance Clear Urine pH 6.0 Ur Specific [place] 1.020 Urine Protein 2+ H Urine Glucose (UA) Negative Urine Ketones Negative Urine Blood Trace-intact H Urine Nitrite Negative Urine Bilirubin Negative Urine Urobilinogen 0.2 Ur Leukocyte Esterase Trace H Urine RBC 3-5 Urine WBC 5-10 Ur Epithelial Cells 0-3 02/04/18 02/04/18 02/04/18 15:40 15:40 15:40 WBC 13.5 H RBC 4.71 Hgb 13.1 Hct 39.3 MCV 83.4 MCH 27.9 MCHC 33.5 RDW 13.3 Plt Count 268 MPV 9.6 Neutrophils % Lymphocytes % Monocytes % Eosinophils % Basophils % Sodium 133 L Potassium 3.8 Chloride 98 Carbon Dioxide 23 Anion Gap 12 BUN 20 H D Creatinine < 0.8 Creat Clearance w eGFR POC Glucometer Random Glucose 206 H Lactic Acid Calcium 9.3 Total Bilirubin AST ALT Alkaline Phosphatase Troponin I Total Protein Albumin Lipase 128 Urine Color Urine Appearance Urine pH Ur Specific [place] Urine Protein Urine Glucose (UA) Urine Ketones Urine Blood Urine Nitrite Urine Bilirubin Urine Urobilinogen Ur Leukocyte Esterase Urine RBC Urine WBC Ur Epithelial Cells 02/04/18 22:37 WBC RBC Hgb Hct MCV MCH MCHC RDW Plt Count MPV Neutrophils % Lymphocytes % Monocytes % Eosinophils % Basophils % Sodium Potassium Chloride Carbon Dioxide Anion Gap BUN Creatinine Creat Clearance w eGFR POC Glucometer 152 Random Glucose Lactic Acid Calcium Total Bilirubin AST ALT Alkaline Phosphatase Troponin I Total Protein Albumin Lipase Urine Color Urine Appearance Urine pH Ur Specific [place] Urine Protein Urine Glucose (UA) Urine Ketones Urine Blood Urine Nitrite Urine Bilirubin Urine Urobilinogen Ur Leukocyte Esterase Urine RBC Urine WBC Ur Epithelial Cells Active Medications Generic Name Dose Route Start Last Admin Trade Name Freq PRN Reason Stop Dose Admin Amlodipine Besylate 10 mg 02/05/18 10:00 Norvasc - PO DAILY [facility] Aspirin 81 mg 02/05/18 10:00 Ecotrin - PO DAILY [facility] Atorvastatin Calcium 10 mg 02/05/18 22:00 Lipitor - PO HS [facility] Budesonide/Formoterol Fumarate 2 puff 02/05/18 10:00 Symbicort 80/4.5mcg - IH BID [facility] Enalapril Maleate 10 mg 02/05/18 10:00 Vasotec - PO DAILY [facility] Escitalopram Oxalate 10 mg 02/05/18 10:00 Lexapro - PO DAILY [facility] Hydrochlorothiazide 25 mg 02/05/18 10:00 Hctz - PO DAILY [facility] Sodium Chloride 1,000 mls @ 75 mls/hr 02/04/18 22:15 02/04/18 22:22 Normal Saline - IV 75 mls/hr ASDIR HERLINDA Administration Insulin Aspart 1 vial 02/05/18 22:00 Novolog Vial Sliding Scale - SQ HS HERLINDA Protocol Insulin Aspart 1 vial 02/05/18 07:00 02/05/18 06:20 Novolog Vial Sliding Scale - SQ Not Given TIDAC [facility] Protocol Losartan Potassium 100 mg 02/05/18 22:00 Cozaar - PO HS [facility] Metoprolol Tartrate 25 mg 02/05/18 10:00 Lopressor - PO BID [facility] Oxycodone/Acetaminophen 1 combo 02/05/18 00:05 02/05/18 07:55 Percocet 5/325 - PO 1 combo Q4H PRN Administration PAIN LEVEL 6-10 Pantoprazole Sodium 20 mg 02/04/18 23:39 Protonix - PO DAILY PRN DYSPEPSIA Microbiology 02/04/18 11:13 Urine - Urine Clean Catch Urine Culture - Preliminary Lactose Fermenting Neg Bacilli Radiology Reports CT abd/pelvis with IV contrast IMPRESSION: No CT evidence of acute diverticulitis or an obstructing urinary tract calculus. In comparison to a 2008 CT study interval development of a 2 x 1.7 cm left ovarian cyst is noted. Correlation with 3 month follow-up CT or MRI is suggested to document stability and lack of developing pathology. Interval mild enlargement of a left adrenal adenoma is seen currently measuring 3 x 1.7 cm, previously 2.5 x 1.7 cm. Reported By: Jean Paez MD 02/04/18 [id number] ASSESSMENT/PLAN: 1) MS lower back pain - start naproxen as needed for pain with Flexeril for muscle spasms. patient and daughter reports she takes Aleve at home no adverse reaction, Protonix for GI protection - physical therapy evaluation 2) lactic acidosis - repeat lactic acid 1.8 likely secondary to metformin continue to hold metformin 3) UTI - Urine culture positive preliminary lactose fermenting bacilli will start Rocephin 1 g daily pending final culture 4) left adrenal adenoma - outpatient follow up with PCP discussed with patient and daughter at bedside , patient will require outpatient follow up 5) card HTN/HLD - cont home meds 6) hypothyroid - pending tsh and t4, cont synthroid DVT PPX - defer heparin, anticipated LOS less than 48h FEN - NS @ 75cc/hr - bmp in am - low sodium diet Dispo: Pt currently requires further observation for management of her emergent condition. Visit type - Emergency Visit Emergency Visit: Yes ED Registration Date: 02/04/18 Care time: The patient presented to the Emergency Department on the above date and was hospitalized for further evaluation of their emergent condition. - New Patient This patient is new to me today: Yes Date on this admission: 02/07/18 - Critical Care Critical Care patient: No - Discharge Referral Referred to [facility] Med P.C.: No
[2018-02-05 09:05] LABS: CREATININE < 0.8 mg/dl (0.6-1.3)
[2018-02-05] MEDS ORDERED: SIMETHICONE 80 MG TAB.CHEW (FP) PO PRN (09:08)
[2018-02-05] MEDS ORDERED: PANTOPRAZOLE 20 MG TABLET (FP) PO PRN (09:10)
[2018-02-05] MEDS: ENALAPRIL MALEATE 10 MG TABLET (FP) PO SCH (09:15)
[2018-02-05] MEDS ORDERED: SODIUM CHLORIDE 0.9%/KCL 20 MEQ/1,000 ML INFUS.BAG IV SCH (09:15)
[2018-02-05] MEDS: amLODIPine BESYLATE 10 MG TABLET (FP) PO SCH (09:16)
[2018-02-05] MEDS: ASPIRIN COATED 81 MG TABLET.EC PO SCH (09:16)
[2018-02-05] MEDS: HYDROCHLOROTHIAZIDE 25 MG TABLET (FP) PO SCH (09:16)
[2018-02-05] MEDS: METOPROLOL TARTRATE 25 MG TABLET (FP) PO SCH ×2 (09:16→21:09)
[2018-02-05] MEDS: ESCITALOPRAM OXALATE 10 MG TABLET (FP) PO SCH (09:17)
[2018-02-05] MEDS ORDERED: POTASSIUM CHLORIDE TABS 20 MEQ TABLET.ER (FP) PO ONE (09:50)
[2018-02-05] MEDS: PANTOPRAZOLE 40 MG TABLET (FP) PO SCH (10:00)
[2018-02-05] MEDS ORDERED: PATIENT'S OWN MEDICATION (NON-FORMULARY) (Enalapril/Hydrochlorothiazide [Vaseretic 10-25 M PO SCH (10:00)
[2018-02-05] MEDS: CEFTRIAXONE 1 G/50 ML PREMIX 50 ML IVPB SCH (10:00)
--- NOTE | 2018-02-05 13:28 | EKG ---
Test Reason : Blood Pressure : / mmHG Vent. Rate : 078 BPM Atrial Rate : 078 BPM P-R Int : 176 ms QRS Dur : 098 ms QT Int : 398 ms P-R-T Axes : 062 000 044 degrees QTc Int : 453 ms NORMAL SINUS RHYTHM NORMAL ECG WHEN COMPARED WITH ECG OF 18-DEC-2017 21:07, NO SIGNIFICANT CHANGE WAS FOUND Confirmed by MD MEYER PENG ([id number]) on 02/05/2018 1:28:27 PM Referred By: BOUBACAR Confirmed By:TARA MEYER MD
[2018-02-05] MEDS ORDERED: NAPROXEN 500 MG TABLET (FP) PO PRN (13:39)
[2018-02-05] MEDS ORDERED: CYCLOBENZAPRINE HCL 10 MG TABLET (FP) PO PRN (13:40)
[2018-02-05] MEDS: BUDESONIDE/FORMETEROL FUMARATE 80/4.5 mcg INHALER IH SCH (15:44)
[2018-02-05] MEDS: LACTOBACILLUS ACIDOPHILUS 1 TABLET PO SCH (18:47)
[2018-02-05] MEDS: ATORVASTATIN CA 10 MG TABLET (FP) PO SCH (21:09)
[2018-02-05] MEDS: LOSARTAN POTASSIUM 50 MG TABLET (FP) PO SCH (21:09)
[2018-02-06] MEDS: INSULIN SLIDING SCALE (NOVOLOG) 1 VIAL SQ SCH ×3 (09:00→23:13)
[2018-02-06] MEDS: LACTOBACILLUS ACIDOPHILUS 1 TABLET PO SCH (10:00)
[2018-02-06] MEDS ORDERED: PT OWN MED DRAWER 7, Y5N ONE (10:09)
[2018-02-06] MEDS: CEFTRIAXONE 1 G/50 ML PREMIX 50 ML IVPB SCH (10:14)
[2018-02-06] MEDS: amLODIPine BESYLATE 10 MG TABLET (FP) PO SCH (10:15)
[2018-02-06] MEDS: ESCITALOPRAM OXALATE 10 MG TABLET (FP) PO SCH (10:15)
[2018-02-06] MEDS: ASPIRIN COATED 81 MG TABLET.EC PO SCH (10:15)
[2018-02-06] MEDS: PANTOPRAZOLE 40 MG TABLET (FP) PO SCH (10:15)
[2018-02-06] MEDS: HYDROCHLOROTHIAZIDE 25 MG TABLET (FP) PO SCH (10:15)
[2018-02-06] MEDS: ENALAPRIL MALEATE 10 MG TABLET (FP) PO SCH (10:15)
[2018-02-06] MEDS: METOPROLOL TARTRATE 25 MG TABLET (FP) PO SCH ×2 (10:16→21:31)
[2018-02-06 12:43] LABS: BASO % 2.7 % (0-2.0); HEMATOCRIT 37.8 % (32.4-45.2); HEMOGLOBIN 13.1 GM/dl (10.7-15.3); LYMPH % 21.2 % (8-40); MCH 29.1 pg (25.7-33.7); MCHC 34.7 g/dl (32.0-36.0); MEAN CELL VOLUME 83.8 fl (80-96); MONO % 8.3 % (3.8-10.2); NEUT % 66.8 % (42.8-82.8); PLATELET COUNT 356 K/MM3 (134-434); RBC 4.51 M/mm3 (3.60-5.2); RDW 13.8 % (11.6-15.6); WHITE BLOOD COUNT 13.4 K/mm3 (4.0-10.8)
--- NOTE | 2018-02-06 12:51 | PN ---
Physical Exam: SUBJECTIVE: Patient seen and examined, Patient sitting at bedside chair daughter at bedside patient reports improvement of lower back pain OBJECTIVE: patient is a 78-year-old female past medical history of HTN, HLD, NIDDM, GERD, fatty liver, colon polyp, renal colic, hypothyroidism. patient was admitted for an emergency department observation for emergent condition Vital Signs Period Temp Pulse Resp BP Sys/Lares Pulse Ox Last 24 Hr 98 F-98.2 F 66-76 16-18 118-153/63-69 92-94 GENERAL: The patient is awake, alert, and fully oriented, in no acute distress. HEAD: Normal with no signs of trauma. EYES: PERRL, extraocular movements intact, sclera anicteric, conjunctiva clear. No ptosis. ENT: Ears normal, nares patent, oropharynx clear without exudates, moist mucous membranes. NECK: Trachea midline, full range of motion, supple. LUNGS: Breath sounds equal, clear to auscultation bilaterally, no wheezes, no crackles, no accessory muscle use. HEART: Regular rate and rhythm, S1, S2 without murmur, rub or gallop. ABDOMEN: Soft, nontender, nondistended, normoactive bowel sounds, no guarding, no rebound, no hepatosplenomegaly, no masses. EXTREMITIES: 2+ pulses, warm, well-perfused, no edema. NEUROLOGICAL: Cranial nerves II through XII grossly intact. Normal speech, gait not observed. PSYCH: Normal mood, normal affect. SKIN: Warm, dry, normal turgor, no rashes or lesions noted Laboratory Results - last 24 hr 02/06/18 02/06/18 05:43 12:20 WBC 13.4 H RBC 4.51 Hgb 13.1 Hct 37.8 MCV 83.8 MCH 29.1 MCHC 34.7 RDW 13.8 Plt Count 356 MPV 8.0 Absolute Neuts (auto) 9.0 Neutrophils % 66.8 Lymphocytes % 21.2 Monocytes % 8.3 Eosinophils % 1.0 Basophils % 2.7 H Sodium Potassium Chloride Carbon Dioxide Anion Gap BUN Creatinine POC Glucometer 167 Random Glucose Calcium TSH Resin T3 Uptake CMP Sodium 136 mmol/L (136-145) 02/06/18 12:20 Potassium 3.8 mmol/L (3.5-5.1) 02/06/18 12:20 Chloride 101 mmol/L (98-107) 02/06/18 12:20 Carbon Dioxide 27 mmol/L (22-28) 02/06/18 12:20 Anion Gap 8 (8-16) 02/06/18 12:20 BUN 15 mg/dl (7-18) 02/06/18 12:20 Creatinine < 0.8 mg/dl (0.6-1.3) 02/06/18 12:20 Creat Clearance w eGFR > 60 (>60) 02/06/18 12:20 POC Glucometer 167 UNITS (80-120) 02/06/18 05:43 Random Glucose 160 mg/dl (74-106) H 02/06/18 12:20 Lactic Acid 1.6 mmol/L (0.0-2.0) 02/05/18 08:21 Calcium 9.0 mg/dl (8.4-10.2) 02/06/18 12:20 Phosphorus 2.3 mg/dl (2.5-4.6) L 02/06/18 12:20 Magnesium 1.7 mg/dL (1.8-2.4) L 02/06/18 12:20 Total Bilirubin 0.5 mg/dl (0.2-1.0) 02/06/18 12:20 AST 46 U/L (10-42) H D 02/06/18 12:20 ALT 24 U/L (10-40) D 02/06/18 12:20 Alkaline Phosphatase 46 U/L (32-92) D 02/06/18 12:20 Troponin I 0.04 ng/ml (0.00-0.06) 02/04/18 15:40 Total Protein 6.8 g/dl (6.4-8.3) 02/06/18 12:20 Albumin 4.0 g/dl (3.5-5.0) 02/06/18 12:20 Lipase 128 U/L (73-393) 02/04/18 15:40 TSH 4.06 uIU/ml (0.358-3.74) H 02/05/18 08:16 Resin T3 Uptake 30.8 % (30-39) 02/05/18 08:16 Active Medications Generic Name Dose Route Start Last Admin Trade Name Freq PRN Reason Stop Dose Admin Amlodipine Besylate 10 mg 02/05/18 10:00 02/06/18 10:15 Norvasc - PO 10 mg DAILY HERLINDA Administration Aspirin 81 mg 02/05/18 10:00 02/06/18 10:15 Ecotrin - PO 81 mg DAILY HERLINDA Administration Atorvastatin Calcium 10 mg 02/05/18 22:00 02/05/18 21:09 Lipitor - PO 10 mg HS HERLINDA Administration Budesonide/Formoterol Fumarate 2 puff 02/05/18 10:00 02/05/18 15:44 Symbicort 80/4.5mcg - IH 2 inh BID HERLINDA Administration Cyclobenzaprine HCl 5 mg 02/05/18 13:40 Flexeril - PO TID PRN MUSCLE SPASMS Enalapril Maleate 10 mg 02/05/18 10:00 02/06/18 10:15 Vasotec - PO 10 mg DAILY HERLINDA Administration Escitalopram Oxalate 10 mg 02/05/18 10:00 02/06/18 10:15 Lexapro - PO 10 mg DAILY HERLINDA Administration Hydrochlorothiazide 25 mg 02/05/18 10:00 02/06/18 10:15 Hctz - PO 25 mg DAILY HERLINDA Administration Potassium Chloride/Sodium Chloride 20 meq in 1,000 mls @ 75 mls/hr 02/05/18 09 :15 02/05/18 09:21 Ns+20 Meq Kcl - IV 75 mls/hr ASDIR HERLINDA Administration Ceftriaxone Sodium 50 mls @ 100 mls/hr 02/05/18 10:00 02/06/18 10:14 Ceftriaxone 1 Gm-D5w Bag IVPB 100 mls/hr DAILY HERLINDA Administration Protocol Insulin Aspart 1 vial 02/05/18 22:00 02/05/18 22:12 Novolog Vial Sliding Scale - SQ Not Given HS HERLINDA Protocol Insulin Aspart 1 vial 02/05/18 07:00 02/05/18 06:20 Novolog Vial Sliding Scale - SQ Not Given [facility] Protocol Lactobacillus Acidophilus 1 tab 02/05/18 13:45 02/05/18 18:47 Bacid - PO 1 tab DAILY HERLINDA Administration Losartan Potassium 100 mg 02/05/18 22:00 02/05/18 21:09 Cozaar - PO 100 mg HS HERLINDA Administration Metoprolol Tartrate 25 mg 02/05/18 10:00 02/06/18 10:16 Lopressor - PO 25 mg BID HERLINDA Administration Naproxen 500 mg 02/05/18 13:39 02/06/18 10:14 Naprosyn - PO 500 mg BID PRN Administration PAIN LEVEL 7 - 10 Oxycodone/Acetaminophen 1 combo 02/05/18 00:05 02/05/18 18:47 Percocet 5/325 - PO 1 combo Q4H PRN Administration PAIN LEVEL 6-10 Pantoprazole Sodium 40 mg 02/05/18 10:00 02/06/18 10:15 Protonix - PO 40 mg DAILY HERLINDA Administration Simethicone 80 mg 02/05/18 09:08 Mylicon - PO Q4H PRN GAS Microbiology 02/04/18 11:13 Urine - Urine Clean Catch Urine Culture - Final Escherichia Coli Radiology Reports CT abd/pelvis with IV contrast IMPRESSION: No CT evidence of acute diverticulitis or an obstructing urinary tract calculus. In comparison to a 2007 CT study interval development of a 2 x 1.7 cm left ovarian cyst is noted. Correlation with 3 month follow-up CT or MRI is suggested to document stability and lack of developing pathology. Interval mild enlargement of a left adrenal adenoma is seen currently measuring 3 x 1.7 cm, previously 2.5 x 1.7 cm. Reported By: Jean Paez MD 02/04/18 1513 chest xray: no infiltrates noted AND no effusion is noted ASSESSMENT/PLAN: 1) MS lower back pain - much improved with naproxen as needed for pain with Flexeril for muscle spasms continue protonix for GI protection - physical therapy evaluation 2) lactic acidosis - lactic acid resolved. likely secondary to metformin continue to hold metformin 3) UTI - + ecoli, continue rocephin 1 g daily - leukocytosis noted, patient is afebrile 4) left adrenal adenoma - outpatient follow up with PCP discussed with patient and daughter at bedside , patient will require outpatient follow up 5) card HTN/HLD - cont home meds 6) hypothyroid - subclinical hypothyroidism and t3 wnl, pending t 4 DVT PPX - defer heparin, anticipated LOS less than 48h FEN - bmp in am - low sodium diet Dispo: Pt currently requires further observation for management of her emergent condition. Visit type - Emergency Visit Emergency Visit: Yes ED Registration Date: 02/04/18 Care time: The patient presented to the Emergency Department on the above date and was hospitalized for further evaluation of their emergent condition. - New Patient This patient is new to me today: No - Critical Care Critical Care patient: No - Discharge Referral Referred to [facility] No
[2018-02-06 12:57] LABS: ALK PHOS 46 U/L (32-92); ANION GAP 8 (8-16); BILIRUBIN,TOTAL 0.5 mg/dl (0.2-1.0); BLOOD UREA NITROGEN 15 mg/dl (7-18); CHLORIDE 101 mmol/L (98-107); CO2 27 mmol/L (22-28); GLUCOSE,RANDOM 160 mg/dl (74-106); MAGNESIUM 1.7 mg/dL (1.8-2.4); PHOSPHOROUS 2.3 mg/dl (2.5-4.6); POTASSIUM 3.8 mmol/L (3.5-5.1); SGOT/AST 46 U/L (10-42); SGPT/ALT 24 U/L (10-40); SODIUM 136 mmol/L (136-145); TOT PROT 6.8 g/dl (6.4-8.3)
[2018-02-06 13:02] LABS: CREATININE < 0.8 mg/dl (0.6-1.3)
[2018-02-06] MEDS ORDERED: MAGNESIUM SULFATE IN WATER 2 GM/50 ML IVPB IVPB ONE (14:00)
[2018-02-06] MEDS: BUDESONIDE/FORMETEROL FUMARATE 80/4.5 mcg INHALER IH SCH ×2 (14:28→21:30)
[2018-02-06] MEDS ORDERED: POTASSIUM CHLORIDE TABS 20 MEQ TABLET.ER (FP) PO ONE (14:35)
[2018-02-06] MEDS: LOSARTAN POTASSIUM 50 MG TABLET (FP) PO SCH (21:31)
[2018-02-06] MEDS: ATORVASTATIN CA 10 MG TABLET (FP) PO SCH (21:31)
[2018-02-06] MEDS ORDERED: NAPH,MB-DB/K PH,MBDB POWDER PACKET PO SCH (22:00)
[2018-02-07 06:26] VITALS: BP 136/63; PULSE 53; TEMP 97.5
[2018-02-07] MEDS: INSULIN SLIDING SCALE (NOVOLOG) 1 VIAL SQ SCH (06:56)
[2018-02-07] MEDS: BUDESONIDE/FORMETEROL FUMARATE 80/4.5 mcg INHALER IH SCH (09:59)
[2018-02-07] MEDS: CEFTRIAXONE 1 G/50 ML PREMIX 50 ML IVPB SCH (10:00)
[2018-02-07] MEDS: ASPIRIN COATED 81 MG TABLET.EC PO SCH (10:00)
[2018-02-07] MEDS: LACTOBACILLUS ACIDOPHILUS 1 TABLET PO SCH (10:00)
[2018-02-07] MEDS: ESCITALOPRAM OXALATE 10 MG TABLET (FP) PO SCH (10:01)
[2018-02-07] MEDS: METOPROLOL TARTRATE 25 MG TABLET (FP) PO SCH (10:01)
[2018-02-07] MEDS: HYDROCHLOROTHIAZIDE 25 MG TABLET (FP) PO SCH (10:01)
[2018-02-07] MEDS: ENALAPRIL MALEATE 10 MG TABLET (FP) PO SCH (10:01)
[2018-02-07 11:27] LABS: BASO % 0.9 % (0-2.0); EOS % 3.7 % (0-4.5); HEMATOCRIT 36.5 % (32.4-45.2); HEMOGLOBIN 12.3 GM/dl (10.7-15.3); LYMPH % 22.1 % (8-40); MCH 28.3 pg (25.7-33.7); MCHC 33.8 g/dl (32.0-36.0); MEAN CELL VOLUME 83.9 fl (80-96); MEAN PLT VOLUME 7.6 fl (7.5-11.1); MONO % 8.8 % (3.8-10.2); NEUT % 64.5 % (42.8-82.8); PLATELET COUNT 333 K/MM3 (134-434); RBC 4.35 M/mm3 (3.60-5.2); RDW 13.8 % (11.6-15.6); WHITE BLOOD COUNT 9.6 K/mm3 (4.0-10.8)
--- NOTE | 2018-02-07 12:29 | DS ---
Physical Exam: SUBJECTIVE: Patient seen and examined, patient ambulatory to our nursing station , denies any pain, patient denies any tactile fever. OBJECTIVE:This is an 78 year old female with a significant past medical history of HTN, DM, renal colic who presented to the ED suddent onset left flank, low back pain. She states the pain started when she was getting out of bed. She also reports nausea and dry heaves as well as increased burping. She states the pain radiated around to her abdomen and groin. ER course was notable for: (1) CT abd/pel without acute findings (2) WBC 13.5 (3) lactic acid 2.8 Vital Signs Period Temp Pulse Resp BP Sys/Lares Pulse Ox Last 24 Hr 97.5 F-98.3 F 53-60 16-18 111-136/45-63 96-97 PHYSICAL EXAM GENERAL: The patient is awake, alert, and fully oriented, in no acute distress. HEAD: Normal with no signs of trauma. EYES: PERRL, extraocular movements intact, sclera anicteric, conjunctiva clear. ENT: Ears normal, nares patent, oropharynx clear without exudates, moist mucous membranes. NECK: Trachea midline, full range of motion, supple. LUNGS: Breath sounds equal, clear to auscultation bilaterally, no wheezes, no crackles, no accessory muscle use. HEART: Regular rate and rhythm, S1, S2 without murmur, rub or gallop. ABDOMEN: Soft, nontender, nondistended, normoactive bowel sounds, no guarding, no rebound, no hepatosplenomegaly, no masses. EXTREMITIES: 2+ pulses, warm, well-perfused, no edema. NEUROLOGICAL: Cranial nerves II through XII grossly intact. Normal speech, gait not observed. PSYCH: Normal mood, normal affect. SKIN: Warm, dry, normal turgor, no rashes or lesions noted. LABS Laboratory Results - last 24 hr 02/06/18 02/06/18 02/06/18 12:20 12:20 15:03 WBC 13.4 H RBC 4.51 Hgb 13.1 Hct 37.8 MCV 83.8 MCH 29.1 MCHC 34.7 RDW 13.8 Plt Count 356 MPV 8.0 Absolute Neuts (auto) 9.0 Neutrophils % 66.8 Lymphocytes % 21.2 Monocytes % 8.3 Eosinophils % 1.0 Basophils % 2.7 H Sodium 136 Potassium 3.8 Chloride 101 Carbon Dioxide 27 Anion Gap 8 BUN 15 Creatinine < 0.8 Creat Clearance w eGFR > 60 POC Glucometer 156 Random Glucose 160 H Calcium 9.0 Phosphorus 2.3 L Magnesium 1.7 L Total Bilirubin 0.5 AST 46 H D ALT 24 D Alkaline Phosphatase 46 D Total Protein 6.8 Albumin 4.0 02/06/18 02/07/18 02/07/18 22:39 06:55 11:20 WBC 9.6 RBC 4.35 Hgb 12.3 Hct 36.5 MCV 83.9 MCH 28.3 MCHC 33.8 RDW 13.8 Plt Count 333 MPV 7.6 Absolute Neuts (auto) 6.2 Neutrophils % 64.5 Lymphocytes % 22.1 Monocytes % 8.8 Eosinophils % 3.7 Basophils % 0.9 Sodium Potassium Chloride Carbon Dioxide Anion Gap BUN Creatinine Creat Clearance w eGFR POC Glucometer 152 150 Random Glucose Calcium Phosphorus Magnesium Total Bilirubin AST ALT Alkaline Phosphatase Total Protein Albumin Microbiology 02/04/18 11:13 Urine - Urine Clean Catch Urine Culture - Final Escherichia Coli Radiology Reports CT abd/pelvis with IV contrast IMPRESSION: No CT evidence of acute diverticulitis or an obstructing urinary tract calculus. In comparison to a 2008 CT study interval development of a 2 x 1.7 cm left ovarian cyst is noted. Correlation with 3 month follow-up CT or MRI is suggested to document stability and lack of developing pathology. Interval mild enlargement of a left adrenal adenoma is seen currently measuring 3 x 1.7 cm, previously 2.5 x 1.7 cm. Reported By: Jean Paez MD 02/04/18 1513 chest xray: no infiltrates noted AND no effusion is noted HOSPITAL COURSE: 1) lower back pain - much improved with naproxen as needed for pain with Flexeril for muscle spasms with protonix for GI protection - physical therapy evaluation 2) lactic acidosis - lactic acid resolved. likely secondary to metformin 3)UTI - + ecoli, continue rocephin 1 g daily - leukocytosis resolved, patient is afebrile 4) left adrenal adenoma - outpatient follow up with PCP discussed with patient and daughter at bedside , patient will require outpatient follow up 5) HTN/HLD - cont home meds 6) hypothyroid - subclinical hypothyroidism and t3 wnl, patient will require outpatient follow up PLAN - discharge home with VNS - continue ceftin as prescribed Date of Admission:02/04/18 Date of Discharge: 02/07/18 Minutes to complete discharge: 45 Discharge Summary Reason For Visit: ABDOMINAL PAIN Current Active Problems Abdominal pain (Acute) Diabetes mellitus with hyperglycemia, without long-term current use of insulin ( Acute) H/O renal calculi (Acute) LLQ pain (Acute) Left flank pain (Acute) Left hip pain (Acute) Condition: Good - Instructions Referrals: Tapan Aguilar MD [Primary Care Provider] - - Home Medications Comprehensive Discharge Medication List: Ambulatory Orders Amlodipine Besylate [Norvasc -] 10 mg PO DAILY 05/08/17 Aspirin [Aspirin EC] 81 mg PO DAILY 05/08/17 Escitalopram Oxalate [Lexapro -] 10 mg PO DAILY 05/08/17 Losartan Potassium [Cozaar] 100 mg PO HS 05/08/17 Metformin HCl [Metformin HCl ER] 1,000 mg PO BID 05/08/17 RX: Simvastatin 20 mg PO DAILY 05/08/17 Enalapril/Hydrochlorothiazide [Vaseretic 10-25 mg Tablet] 1 each PO BID RX: Metoprolol Tartrate 25 mg PO BID 12/18/17 RX: Omeprazole 20 mg PO DAILY PRN 12/18/17 Albuterol Sulfate Inhaler - [Ventolin Hfa Inhaler -] 1 - 2 inh PO Q4H PRN Fluticasone/Salmeterol [Advair 250-50 Diskus] 1 each IH BID PRN 02/04/18 - Discharge Referral Referred to [facility] No
== END 2018-02-07 13:18 | disposition home or self-care (01) ==
LOC: FER 09:32 → FM/S 15:37
PROVIDERS: ADMIT Internal Medicine; ATTEND Nurse Practitioner Family
PROC: 3E033NZ Introduction of Analgesics, Hypnotics, Sedatives into Peripheral Vein, Percutaneous Approach (ICD-10-PCS; principal; 2018-02-04)
PROC: 3E033GC Introduction of Other Therapeutic Substance into Peripheral Vein, Percutaneous Approach (ICD-10-PCS; 2018-02-04)
PROC: 3E0337Z Introduction of Electrolytic and Water Balance Substance into Peripheral Vein, Percutaneous Approach (ICD-10-PCS; 2018-02-04)
DX: R10.32 Left lower quadrant pain (principal); M25.552 Pain in left hip; E87.2 Acidosis; N39.0 Urinary tract infection, site not specified; E11.65 Type 2 diabetes mellitus with hyperglycemia; Z87.442 Personal history of urinary calculi; M54.5 Low back pain; G89.29 Other chronic pain; I10 Essential (primary) hypertension; E78.5 Hyperlipidemia, unspecified; K21.9 Gastro-esophageal reflux disease without esophagitis; K76.0 Fatty (change of) liver, not elsewhere classified; K58.9 Irritable bowel syndrome, unspecified; F41.9 Anxiety disorder, unspecified; M19.90 Unspecified osteoarthritis, unspecified site; Z87.440 Personal history of urinary (tract) infections; Z79.82 Long term (current) use of aspirin; Z79.84 Long term (current) use of oral hypoglycemic drugs; Z88.8 Allergy status to other drugs, medicaments and biological substances; R26.2 Difficulty in walking, not elsewhere classified; Z99.89 Dependence on other enabling machines and devices; Z85.850 Personal history of malignant neoplasm of thyroid; E89.0 Postprocedural hypothyroidism; Z90.710 Acquired absence of both cervix and uterus; D35.02 Benign neoplasm of left adrenal gland
CPT/HCPCS: 36415; 71046-TC-FY; 74177-TC; 80048; 80053; 81003; 81015; 82962; 83605; 83690; 83735; 84100; 84436; 84443; 84479; 84484; 85025; 85027; 87086; 87186; 93005; 96365; 96367; 96375; 96376; 97116-GP; 97161-GP; 99283-25; G0378; J0131; J7030

== ENCOUNTER 2019-03-12 07:38 | Day surgery (SDC) | payer OTHER, BC ==
[2019-03-10 13:29] VITALS: BMI 36.2
[2019-03-12] MEDS ORDERED: LIDOCAINE HCL/PF 2% SDV 5ML VIAL ONE ×3 (07:56→08:55)
[2019-03-12] MEDS ORDERED: PROPOFOL 20 ML ONE ×2 (07:57)
[2019-03-12 08:11] VITALS: TEMP 98.6
[2019-03-12 09:43] VITALS: BP 111/56; PULSE 69
== END 2019-03-12 10:00 | disposition home or self-care (01) ==
LOC: FASU-ENDO 07:38
PROVIDERS: ATTEND Internal Medicine Gastroenterology
PROC: 0DJD8ZZ Inspection of Lower Intestinal Tract, Via Natural or Artificial Opening Endoscopic (ICD-10-PCS; principal; 2019-03-12 08:53)
DX: K57.30 Diverticulosis of large intestine without perforation or abscess without bleeding (principal); R10.9 Unspecified abdominal pain; K63.89 Other specified diseases of intestine; Z86.010 Personal history of colon polyps
CPT/HCPCS: 82962

== ENCOUNTER 2019-10-15 13:22 | Emergency (ER) | payer OTHER, BC ==
--- NOTE | 2019-10-15 13:34 | PDOC ---
History of Present Illness - General Chief Complaint: Headache Stated Complaint: HEADACHE Time Seen by Provider: 10/15/19 13:28 History Source: Patient, Family (son) Exam Limitations: No Limitations - History of Present Illness Initial Comments: 10/15/19 13:35 79yF w PMHx HTN, NIDDM, HLD, GERD, TIA, asthma presenting w sudden onset 3x R parietal sharp stabbing pain lasting 5s each, warmth/flushed, and R mouth droop starting at 1pm today with subsequent chest heaviness. Currently only complaining of heaviness. Did not take any meds for symptoms. Fell down 8d ago on her right side, denies LOC or head trauma. Denies extremity weakness, numbness, chest pain, fever, vision change, nausea/vomiting. Unknown to pt or son whether mouth droop is new or old Past History - Past Medical History Allergies/Adverse Reactions: Allergies Allergy/AdvReac Type Severity Reaction Status Date / Time clarithromycin [From Biaxin] Allergy Mild Itching Verified 03/06/18 12:34 ketorolac Allergy Mild Itching Verified 03/06/18 12:34 nitrofurantoin Allergy Verified 03/06/18 12:34 [From Macrobid] nitrofurantoin Allergy Verified 03/06/18 12:34 macrocrystalline [From Macrobid] morphine AdvReac Severe Verified 03/06/18 12:34 Home Medications: Ambulatory Orders Amlodipine Besylate [Norvasc -] 10 mg PO DAILY 05/08/17 Aspirin [Aspirin EC] 81 mg PO DAILY 05/08/17 Escitalopram Oxalate [Lexapro -] 10 mg PO DAILY 05/08/17 Losartan Potassium [Cozaar] 100 mg PO DAILY 05/08/17 Simvastatin 20 mg PO DAILY 05/08/17 metFORMIN HCL [Metformin ER Osmotic] 1,000 mg PO BID 05/08/17 Enalapril/Hydrochlorothiazide [Vaseretic 10-25 mg Tablet] 1 each PO BID Metoprolol Tartrate 25 mg PO BID 12/18/17 Albuterol Sulfate Inhaler - [Ventolin HFA Inhaler -] 1 - 2 inh PO Q4H PRN Fluticasone/Salmeterol [Advair 250-50 Diskus] 1 each IH BID PRN 02/04/18 Lactobacillus Acidophilus [Bacid -] 1 tab PO DAILY #30 tab 02/07/18 Simethicone [Mylicon -] 80 mg PO Q4H PRN tab.chew 02/07/18 Pantoprazole Sodium [Protonix -] 40 mg PO DAILY PRN 03/12/19 Anemia: No Asthma: Yes Cancer: Yes (THYROID CANCER) Cardiac Disorders: Yes (LEAKING VALVE) CVA: No COPD: No CHF: No Dementia: No Diabetes: Yes GI Disorders: No (GERD H/O COLONIC POLYP) Disorders: Yes (UTI) HTN: Yes Hypercholesterolemia: Yes Kidney Stones: Yes Liver Disease: Yes (FATTY LIVER) Seizures: No Thyroid Disease: Yes - Surgical History Abdominal Surgery: Yes Appendectomy: No Cardiac Surgery: No Cholecystectomy: No Lung Surgery: No Neurologic Surgery: No Orthopedic Surgery: No - Psycho Social/Smoking Cessation Hx Smoking Status: No Smoking History: Never smoked Have you smoked in the past 12 months: No Number of Cigarettes Smoked Daily: 0 Cigars Per Day: 0 Hx Alcohol Use: No Drug/Substance Use Hx: No Substance Use Type: None Hx Substance Use Treatment: No Review of Systems - Review of Systems Constitutional: No: Chills, Fever HEENTM: No: Eye Pain, Recent change in vision, Nose Pain, Hearing Loss Respiratory: No: Cough, Shortness of Breath Cardiac (ROS): Yes: Chest Pain (heaviness). No: Lightheadedness, Palpitations ABD/GI: No: Abdominal Distended, Constipated, Diarrhea, Nausea, Vomiting : No: Burning, Dysuria Musculoskeletal: No: Back Pain, Joint Pain Integumentary: No: Bruising, Dryness Neurological: Yes: Headache. No: Seizure Psychiatric: No: Anxiety, Depression Endocrine: No: Excessive Sweating, Flushing, Intolerance to Cold, Intolerance to Heat Hematologic/Lymphatic: No: Anemia, Blood Clots *Physical Exam - Physical Exam General Appearance: Yes: Nourished, Appropriately Dressed. No: Apparent Distress HEENT: positive: EOMI, JUSTIN, Normal Voice, Hearing Grossly Normal, Other (R mouth droop). negative: Scleral Icterus (R), Scleral Icterus (L), Nasal Congestion Respiratory/Chest: positive: Wheezing (expiratory). negative: Chest Tender, Respiratory Distress, Accessory Muscle Use, Crackles, Rales, Rhonchi, Stridor Cardiovascular: positive: Regular Rhythm, Regular Rate, S1, S2, Systolic Murmur. negative: Edema Gastrointestinal/Abdominal: positive: Normal Bowel Sounds, Flat, Soft. negative : Tender, Organomegaly Integumentary: positive: Normal Color. negative: Dry Neurologic: positive: spray unit feeder II-XII NML intact, Fully Oriented, Alert, Normal Mood/ Affect, Normal Response, Motor Strength 5/5, Respond to painful stimul, Responsive, Facial Droop (R mouth). negative: Numbness, Sensory Deficit, Finger to Nose, Confused ED Treatment Course - LABORATORY CBC & Chemistry Diagram: 10/15/19 14:40 10/15/19 14:40 Medical Decision Making - Medical Decision Making 10/15/19 13:[address] - no acute infarct/bleed/mass, chronic microvascular ischemic changes EKG - NSR, HR 70, QTc 438, TWI V1, unchanged since 2018 CXR - cardiomegaly, clear lung johnson, unchanged CBC, CMP, coags normal, trop neg --- 79yF w PMHx HTN, NIDDM, HLD, GERD, TIA, asthma presenting w sudden onset R parietal sharp stabbing pain, warmth/flushed, and R mouth droop starting at 1pm today with subsequent chest heaviness d/t anxiety from cluster headache. Likely had chronic CVA (NIHSS 1, R mouth droop, neg head CT) and mild asthma exacerbation (wheezing). Low concern for PNA (clear lung johnson) vs UTI (clean UA). Unknown to pt or son whether mouth droop was new or old. Given duoneb x1, 1L NS. tPA not given d/t mild symptoms DC w neuro f/u Discharge - Discharge Information Problems reviewed: Yes Clinical Impression/Diagnosis: Anxiety, Chronic cerebrovascular accident (CVA) Headache Qualifiers: Headache type: cluster Headache chronicity pattern: episodic headache Intractability: not intractable Qualified Code(s): G44.019 - Episodic cluster headache, not intractable Condition: Improved Disposition: HOME - Follow up/Referral Referrals: Prasanth Canela MD [Primary Care Provider] - Stephane Nieto MD [Staff Physician] - - Patient Discharge Instructions Patient Printed Discharge Instructions: DI for Headache Additional Instructions: Take tylenol or ibuprofen if you have headache Follow up with your primary care doctor and the referred neurologist regarding your symptoms Come back to the ED if you have persistent chest pain, trouble breathing, vision change, or worsening headache despite medication. - Post Discharge Activity NIH Stroke Scale - Last Known Well Date/Time & Onset Date Last Known Well: 10/15/19 Time Last Known Well: 13:00 - Initial Evaluation Level of consciousness: Alert Ask patient the month and their age: Answers both correctly Ask patient to open & close eyes; make fist and let go: Obeys both correctly Best gaze (horizontal eye movement): Normal Visual field testing: No visual field loss Facial paresis (Show teeth/raise eyebrows/close eyes tight): Minor paralysis ( flattened nasolabial fold, asymmetry on smiling) Motor Function: Left Arm: Normal Motor Function: Right Arm: Normal (extends arm 90 (or 45) degrees for 10 seconds without drift Motor Function: Left Leg: Normal (extends leg 30 degrees for 5 seconds without drift) Motor Function: Right Leg: Normal (extends leg 30 degrees for 5 seconds without drift) Limb Ataxia: No ataxia Sensory(Use pinprick test arms,legs,trunk,face/side to side): Normal Best language (Describe picture, name items, read sentences): No Aphasia Dysarthria (read several words): Normal articulation Extinction and Inattention: No abnormality - Total Score NIH Stroke Scale Score: 1 tPA Exclusion Checklist 0-3hr - Time Elapsed Date last known well: 10/15/19 Time last known well: 13:00 Elaspsed time: Day(s) and 4 Hour(s) and 0 Minutes - Thrombolytic Therapy Candidate Is the patient eligible for Thrombolytic Therapy?: No - Relative Exclusion Criteria 0-3h Stroke severity too mild: Yes - Ineligibility reason(s) Reasons No tPA given: See reason(s) noted above
[2019-10-15 13:39] VITALS: PULSE 76; TEMP 98.7; BMI 36.6
--- NOTE | 2019-10-15 13:40 | PDOC ---
Attending Attestation - Resident Resident Name: Aryan Rodríguez - ED Attending Attestation I have performed the following: I have examined & evaluated the patient, The case was reviewed & discussed with the resident, I agree w/resident's findings & plan, Exceptions are as noted - HPI HPI: 10/15/19 13:59 This afternoon patient felt 3 momentary, sharp, stabbing pains in the right parietal area of her scalp. She was worried because her daughter at age 28 from a cerebral aneurysm. Immediately following the pain, she became anxious , felt warm and flushed , and her skin tingling all over her body, especially in the arms and legs. There was some "heaviness" in the chest, but no real shortness of breath or other difficulty breathing. She has had "TIAs" in the past, described vaguely as numbness and tingling in different parts of her body, but has no residual. She has no weakness of arms or legs, and no known facial muscle weakness. She is also treated for high blood pressure, [id number] diabetes, elevated cholesterol, asthma/ COPD, GERD, gas, and depression, and is maintained on a baby aspirin daily. No other anticoagulants. Other medications include amlodipine losartan vaseretic, metoprolol albuterol inhaler Advair inhaler Protonix simethicone simvastatin and metformin No tobacco alcohol or drugs. Lives alone but numerous family members nearby and check on her regularly. - Physicial Exam PE: 10/15/19 14:14 Alert and oriented moderately obese no acute distress cheerful and cooperative Afebrile, vital signs normal Head atraumatic. Scalp clear PERRLA, fundi benign with sharp disc margins and good central venous pulsations , no AV nicking or arteriolar narrowing, no hemorrhages or exudates EOMs full without diplopia. Visual johnson intact confrontation. ENT clear. Question of a slight right lower facial droop. This is extremely subtle and would probably not be noted by herself or family member. The remainder of the facial muscles are strong and there is no other asymmetry Neck without tenderness or deformity, full range of motion without pain. No bruits masses or nodes Lungs clear to PNA, full breath sounds bilaterally, no wheezes rales or rhonchi CV S1-S2 normal without murmur rub or gallop pulses full and symmetric no JVD or edema no bruits rate is regular Abdomen soft nontender without mass organomegaly. Neurological C2 to 12 intact except for the questionable right lower facial. Specifically, the ocular muscles are strong and there is no decreased sensation , numbness, or tingling. There is generalized weakness but no focal sensory or motor deficits. Cerebellar intact. Gait stable and unimpaired Extremities no CCE. Recent contusions of both knees due to a fall over 1 week ago. Seen by orthopedics for this injury, x-rays were negative Skin clear, no rash, adequate turgor and wet mucous membranes - Medical Decision Making 10/15/19 14:18 Assessment: Symptoms are most consistent with anxiety/hyperventilation. The patient has a history of anxiety and depression. Neurologically she is intact, and it is uncertain whether she indeed has a right lower facial weakness that is new. Respiratory and cardiac status are stable. Plan: CT of the brain, CBC chemistries and cardiac enzymes, EKG and chest x-ray , observation. Further evaluation and treatment based on results and further observation. CT of the brain is negative for bleed/acute infarct. Discussed with Dr. Pandya. 10/15/19 15:30 Lab work reveals no significant abnormalities, including a normal troponin. Symptoms are unlikely due to TIA or other central nervous system condition. Discharged in the care of her family, for observation, continuing her aspirin therapy and return to the ER if symptoms recur or other serious symptoms develop. Fully ambulatory and asymptomatic at discharge.
[2019-10-15] MEDS ORDERED: ALBUTEROL SO4 2.5/IPRATROPIUM 0.5 INH SOL 3 ML VIAL.NEB. NEB ONE ×2 (13:53→14:04)
[2019-10-15] MEDS ORDERED: SODIUM CHLORIDE 1,000 ML IV SCH (14:00)
[2019-10-15 15:09] LABS: BASO % 1.4 % (0-2.0); EOS % 2.6 % (0-4.5); HEMATOCRIT 37.5 % (32.4-45.2); HEMOGLOBIN 12.4 GM/dl (10.7-15.3); LYMPH % 16.7 % (8-40); MCH 28.1 pg (25.7-33.7); MCHC 33.1 g/dl (32.0-36.0); MEAN CELL VOLUME 84.9 fl (80-96); MEAN PLT VOLUME 9.5 fl (7.5-11.1); MONO % 4.5 % (3.8-10.2); NEUT % 74.8 % (42.8-82.8); PLATELET COUNT 354 K/MM3 (134-434); RBC 4.42 M/mm3 (3.60-5.2); RDW 13.6 % (11.6-15.6); WHITE BLOOD COUNT 10.8 K/mm3 (4.0-10.8)
[2019-10-15 15:19] LABS: ALBUMIN 4.1 g/dl (3.4-5.0); BILIRUBIN,TOTAL 0.7 mg/dl (0.2-1); CALCIUM 9.5 mg/dl (8.5-10); CREATININE 0.8 mg/dl (0.55-1.3); POTASSIUM 4.4 mmol/L (3.5-5.1); TOT PROT 7.5 g/dl (6.4-8.2)
[2019-10-15 15:23] LABS: ACTIVATED PTT 28.7 SECONDS (25.2-36.5)
[2019-10-15 15:24] VITALS: BP 120/54
[2019-10-15 15:25] LABS: CHOLESTEROL 156 mg/dl (50-200); HDL CHOLESTEROL 55 mg/dl (40-60); LDL CHOLESTEROL (ONLY DFH) 74 mg/dl (5-100); TRIGLYCERIDES 137 mg/dl (0-150)
[2019-10-15 15:28] LABS: INR 1.14 (0.82-1.09); PROTHROMBIN TIME (PATIENT) 12.7 SEC (10.2-13.0)
--- NOTE | 2019-10-16 15:16 | EKG ---
Test Reason : Blood Pressure : / mmHG Vent. Rate : 070 BPM Atrial Rate : 070 BPM P-R Int : 194 ms QRS Dur : 100 ms QT Int : 406 ms P-R-T Axes : 068 -16 025 degrees QTc Int : 438 ms NORMAL SINUS RHYTHM NORMAL ECG WHEN COMPARED WITH ECG OF 04-FEB-2018 10:08, NO SIGNIFICANT CHANGE WAS FOUND Confirmed by GIL TIRADO MD ([id number]) on 10/16/2019 3:16:25 PM Referred By: DR CUMMINGS Confirmed By:GIL TIRADO MD
== END 2019-10-15 15:54 | disposition home or self-care (01) ==
LOC: FER 13:22
PROC: 3E0F7GC Introduction of Other Therapeutic Substance into Respiratory Tract, Via Natural or Artificial Opening (ICD-10-PCS; principal; 2019-10-15)
PROC: 3E0F7GC Introduction of Other Therapeutic Substance into Respiratory Tract, Via Natural or Artificial Opening (ICD-10-PCS; 2019-10-15)
DX: G44.019 Episodic cluster headache, not intractable (principal); F41.9 Anxiety disorder, unspecified; I63.9 Cerebral infarction, unspecified; Z88.8 Allergy status to other drugs, medicaments and biological substances; I10 Essential (primary) hypertension; K21.9 Gastro-esophageal reflux disease without esophagitis; J45.909 Unspecified asthma, uncomplicated; Z85.850 Personal history of malignant neoplasm of thyroid; I51.9 Heart disease, unspecified; K76.0 Fatty (change of) liver, not elsewhere classified; E11.9 Type 2 diabetes mellitus without complications; E78.00 Pure hypercholesterolemia, unspecified
CPT/HCPCS: 36415; 70450-TC; 71046-TC-FY; 80053; 80061; 81003; 81015; 82550; 82962; 84484; 85025; 85610; 85730; 93005; 94640; 99285-25; J7030

== ENCOUNTER 2020-03-08 20:29 | Emergency (ER) | payer OTHER, BC ==
[2020-03-08 20:36] VITALS: BMI 33.5
[2020-03-08 21:17] LABS: MCH 28.6 pg (25.7-33.7); MCHC 34.1 g/dl (32.0-36.0); MEAN PLT VOLUME 9.3 fl (7.5-11.1); PLATELET COUNT 355 K/MM3 (134-434); RBC 4.53 M/mm3 (3.60-5.2); RDW 13.9 % (11.6-15.6); WHITE BLOOD COUNT 12.1 K/mm3 (4.0-10.8)
[2020-03-08 21:23] LABS: ALBUMIN 4.6 g/dl (3.4-5.0); BILIRUBIN,TOTAL 1.3 mg/dl (0.2-1); CALCIUM 9.7 mg/dl (8.5-10); CREATININE 0.9 mg/dl (0.55-1.3); POTASSIUM 4.8 mmol/L (3.5-5.1)
[2020-03-08 21:33] LABS: EPITHELIAL CELLS FEW /hpf
[2020-03-08] MEDS ORDERED: SODIUM CHLORIDE 1,000 ML IV STA (21:38)
[2020-03-08] MEDS ORDERED: ACETAMINOPHEN 1000 MG/100 ML VIAL (NON FORMULARY) IVPB ONE (21:38)
[2020-03-08 22:24] LABS: PLATELET ESTIMATE ADEQUATE
[2020-03-08] MEDS ORDERED: ACETAMINOPHEN INJECTION 100 ML IVPB ONE (22:28)
[2020-03-08] MEDS ORDERED: CIPROFLOXACIN 500 MG TABLET (RESTRICTED TO ID) PO ONE (23:47)
[2020-03-08] MEDS ORDERED: CIPROFLOXACIN 250 MG TABLET (RESTRICTED TO ID) PO ONE (23:53)
[2020-03-08 23:58] VITALS: BP 143/72; PULSE 61; TEMP 97.8
--- NOTE | 2020-03-09 00:13 | PDOC ---
Documentation entered by Linnea Kovacs SCRIBE, acting as scribe for Jazzy Canada MD. Jazzy Canada MD: This documentation has been prepared by the sanjayibFermín garcia Lincy, SCRIBE, under my direction and personally reviewed by me in its entirety. I confirm that the documentation accurately reflects all work, treatment, procedures, and medical decision making performed by me. History of Present Illness - General Chief Complaint: Pain, Acute Stated Complaint: FLANK PAIN Time Seen by Provider: 03/08/20 20:30 History Source: Patient Exam Limitations: No Limitations - History of Present Illness Initial Comments: 03/08/20 21:42 The patient is an 80-year-old female with a past medical history significant for DM, HTN, HLD, IBS (hx of constipation but better with probiotic), hx of right urolithiasis, hx of thyroid CA s/p hemithyroidectomy and s/p hysterectomy who presents to the emergency department with left flank pain. The patient presents with 2 days of left flank pain radiating to the left suprapubic region, associated with nausea and urinary symptoms of urine comes out all at once. The patient reports the pain has increased in severity today, reports pain with palpation of left CVA. The patient reports intermittent episodes of flank pain radiating up to the epigastric region with episodes of nausea, gagging, and lightheadedness, denies vomiting. The patient reports a similar episode in the past, which improved after antibiotics use. Denies fever or chills. Past History - Medical History Allergies/Adverse Reactions: Allergies Allergy/AdvReac Type Severity Reaction Status Date / Time clarithromycin [From Biaxin] Allergy Mild Itching Verified 03/06/18 12:34 ketorolac Allergy Mild Itching Verified 03/06/18 12:34 nitrofurantoin Allergy Verified 03/06/18 12:34 [From Macrobid] nitrofurantoin Allergy Verified 03/06/18 12:34 macrocrystalline [From Macrobid] morphine AdvReac Severe Verified 03/06/18 12:34 Home Medications: Ambulatory Orders Amlodipine Besylate [Norvasc -] 10 mg PO DAILY 05/08/17 Aspirin [Aspirin EC] 81 mg PO DAILY 05/08/17 Escitalopram Oxalate [Lexapro -] 10 mg PO DAILY 05/08/17 Losartan Potassium [Cozaar] 100 mg PO DAILY 05/08/17 Simvastatin 20 mg PO DAILY 05/08/17 metFORMIN HCL [Metformin ER Osmotic] 1,000 mg PO BID 05/08/17 Enalapril/Hydrochlorothiazide [Vaseretic 10-25 mg Tablet] 1 each PO BID 12/18/17 Metoprolol Tartrate 25 mg PO BID 12/18/17 Albuterol Sulfate Inhaler - [Ventolin HFA Inhaler -] 1 - 2 inh PO Q4H PRN 02/04/18 Fluticasone/Salmeterol [Advair 250-50 Diskus] 1 each IH BID PRN 02/04/18 Lactobacillus Acidophilus [Bacid -] 1 tab PO DAILY #30 tab 02/07/18 Simethicone [Mylicon -] 80 mg PO Q4H PRN tab.chew 02/07/18 Pantoprazole Sodium [Protonix -] 40 mg PO DAILY PRN 03/12/19 Ciprofloxacin [Cipro (Restricted To Id)] 500 mg PO Q12H #14 tablet 03/08/20 Anemia: No Asthma: Yes Cancer: Yes (THYROID CANCER) Cardiac Disorders: Yes (LEAKING VALVE) CVA: No COPD: No CHF: No Dementia: No Diabetes: Yes GI Disorders: No (GERD H/O COLONIC POLYP) Disorders: Yes (UTI) HTN: Yes Hypercholesterolemia: Yes Kidney Stones: Yes Liver Disease: Yes (FATTY LIVER) Seizures: No Thyroid Disease: Yes - Surgical History Abdominal Surgery: Yes Appendectomy: No Cardiac Surgery: No Cholecystectomy: No Lung Surgery: No Neurologic Surgery: No Orthopedic Surgery: No - Psycho-Social/Smoking History Smoking Status: No Smoking History: Never smoked Have you smoked in the past 12 months: No Number of Cigarettes Smoked Daily: 0 Cigars Per Day: 0 Information on smoking cessation initiated: No - Substance Abuse Hx (Audit-C & DAST Scrn) How often the patient has a drink containing alcohol: Monthly or less Number of drinks the patient has on a typical day: 1 or 2 How often the patient has six or more drinks on one occasion: Never Score: In Men: 4 or > Positive; In Women: 3 or > Positive: 1 Screen Result (Pos requires Nsg. Audit-10AR): Negative In the last yr the pt used illegal drug/Rx for NonMed reason: No Score: Yes response is considered Positive: 0 Screen Result (Positive result requires Nsg. DAST-10): Negative Review of Systems - Review of Systems Able to Perform ROS?: Yes Comments:: 03/08/20 21:42 CONSTITUTIONAL: Pt denies Fever, Chills, weakness. HEENT: denies vision changes, sore throat RESPIRATORY: Denies cough, sob, hemoptysis CARDIAC: denies chest pain, palpitations, lightheadedness, leg swelling ABD/GI: +left flank pain, nausea. denies vomiting, blood per rectum, melena, diarrhea : +urinary symptoms. denies dysuria, frequency, discharge MSK: denies back pain, joint swelling SKIN: denies bruising, erythema, rash NEUROLOGICAL: denies headache, numbness, focal weakness, tingling, ataxia, weakness HEMATOLOGICAL: denies anemia, easy bruising, easy bleeding *Physical Exam - Vital Signs Last Vital Signs Temp Pulse Resp BP Pulse Ox 98.1 F 73 18 123/63 98 03/08/20 20:33 03/08/20 20:33 03/08/20 20:33 03/08/20 20:33 03/08/20 20:33 - Physical Exam 03/08/20 21:43 GENERAL: The patient is awake, alert, and fully oriented, in no acute distress. HEAD: Normal with no signs of trauma. EYES: Pupils equal, round and reactive to light, extraocular movements intact, sclera anicteric, conjunctiva clear with no pallor. ENT: Ears normal, nares patent, oropharynx clear without exudates. Moist mucous membranes. NECK: Normal range of motion, supple without lymphadenopathy, JVD, or masses. CHEST WALL: no substernal tenderness, no rib tenderness. LUNGS: Breath sounds equal, clear to auscultation bilaterally. No wheeze/crackles. HEART: Regular rate and rhythm, normal S1 and S2 without murmur or rub. ABDOMEN: +moderate left CVA tenderness, mild left flank and left lower quadrant tenderness. Soft, distended, normal bowel sounds, no rebound. No involuntary guarding No masses. EXTREMITIES: Normal range of motion, no edema. No clubbing or cyanosis. No cords, erythema, or tenderness. NEUROLOGICAL: Cranial nerves II through XII grossly intact. Normal speech, normal gait. PSYCH: Normal mood, normal affect. SKIN: Warm, Dry, normal turgor, no rashes or lesions noted. ED Treatment Course - LABORATORY CBC & Chemistry Diagram: 03/08/20 20:54 07 20:54 - ADDITIONAL ORDERS Additional order review: Laboratory Results 03/08/20 07 20:54 20:54 Sodium 137 Potassium 4.8 Chloride 98 Carbon Dioxide 25 Anion Gap 14 BUN 29.0 H Creatinine 0.9 Est GFR (CKD-EPI)AfAm 69.01 Est GFR (CKD-EPI)NonAf 59.55 Random Glucose 159 H Calcium 9.7 Total Bilirubin 1.3 H AST 33 ALT 17 Alkaline Phosphatase 53 Total Protein 8.0 Albumin 4.6 Urine Color Yellow Urine Appearance Slightly Urine pH 5.0 Urine Protein 1+ H Urine Glucose (UA) Negative Urine Ketones Negative Urine Blood 1+ H Urine Nitrite Positive H Urine Bilirubin Negative Urine Urobilinogen 0.2 Ur Leukocyte Esterase Trace H 03/08/20 20:54 RBC 4.53 MCV 84.0 MCHC 34.1 RDW 13.9 MPV 9.3 Neutrophils % No Result Required. Lymphocytes % No Result Required. Medical Decision Making - Medical Decision Making As noted above, this 80-year-old woman with multiple medical problems and history of UTI/renal stones/diverticular disease presents with left CVA/flank pain along with left lower quadrant abdominal pain/tenderness over the last few days, worsening today. Exam as noted above with intermittent severe left CVA pain, especially with movement of her torso and mild to moderate left flank/left lower quadrant abdominal tenderness. There are no masses or peritoneal irritation signs. CBC notable for white blood cell count of 12,100; chemistry profile notable for moderate prerenal azotemia with BUN of 29 and creatinine of 0.9. Urinalysis suggestive of UTI with positive nitrate, RBCs ,WBCs and moderate bacteria on microscopic exam. Because of the patient's previous history of renal stones, diverticular disease and urinary tract infections, abdominal/pelvic CT with IV contrast performed. CT interpretation by Dr. Pandya of the radiology staff: Mild thickening of bladder wall, possibly consistent with cystitis. Small amount of air within the bladder, likely iatrogenic. No evidence of hydroureter, hydronephrosis or kidney stones. No evidence of perinephric abscess or other evidence of upper urinary tract infection. No evidence of acute diverticulitis present. Results discussed with the patient and her daughter: Patient will be treated for presumed urinary tract infection, pending urine culture and sensitivity results. Since the patient does have some flank/CVA pain, treatment should be suitable for possible upper tract UTI. Patient has had ciprofloxacin previously without side effects should be given Cipro 500 mg now and course of Cipro 500 mg twice a day for 7 days will be sent to her pharmacy. Because the patient's CVA pain is sharp and intermittent (especially on movement of her torso and not present at rest), it is possible that this pain is related to muscle spasm. Patient relates that she has been having bilateral leg cramps intermittently for last several days. Patient has been urged to drink more water (moderate prerenal azotemia seen on chemistry profile) and use gentle local warmth to the areas of intermittent pain She should return to the emergency room if she experiences worsening pain, fever or vomiting Discharge - Discharge Information Problems reviewed: Yes Clinical Impression/Diagnosis: Back muscle spasm UTI (urinary tract infection) Qualifiers: Urinary tract infection type: site unspecified Hematuria presence: without hematuria Qualified Code(s): N39.0 - Urinary tract infection, site not specified Condition: Stable Disposition: HOME - Additional Discharge Information Prescriptions: Ciprofloxacin [Cipro (Restricted To Id)] 500 mg PO Q12H #14 tablet - Follow up/Referral - Patient Discharge Instructions Patient Printed Discharge Instructions: Urinary Tract Infection Additional Instructions: Drink plenty of water Local warmth to areas of muscle spasms Cipro 500 mg twice a day for 1 week Return to ER if you have more severe pain or develop fever/vomiting Contact your doctor and discuss today's ER visit; follow-up as arranged - Post Discharge Activity
== END 2020-03-09 00:23 | disposition home or self-care (01) ==
LOC: FER 20:29
PROC: 3E033GC Introduction of Other Therapeutic Substance into Peripheral Vein, Percutaneous Approach (ICD-10-PCS; principal; 2020-03-08)
PROC: 3E0337Z Introduction of Electrolytic and Water Balance Substance into Peripheral Vein, Percutaneous Approach (ICD-10-PCS; principal; 2020-03-08)
DX: N39.0 Urinary tract infection, site not specified (principal); M62.830 Muscle spasm of back
CPT/HCPCS: 36415; 74177-TC; 80053; 81003; 81015; 85025; 87086; 87186; 99285-25; J0131; Q9967

== ENCOUNTER 2020-09-04 19:18 | Emergency (ER) | payer OTHER, BC ==
[2020-09-04 19:30] VITALS: TEMP 98.5; BMI 33.7
[2020-09-04 19:51] LABS: BASO % 1.6 % (0-2.0); EOS % 2.2 % (0-4.5); HEMATOCRIT 37.4 % (32.4-45.2); HEMOGLOBIN 12.6 GM/dl (10.7-15.3); LYMPH % 21.2 % (8-40); MCH 28.7 pg (25.7-33.7); MCHC 33.7 g/dl (32.0-36.0); MEAN CELL VOLUME 85.3 fl (80-96); MONO % 6.4 % (3.8-10.2); NEUT % 68.6 % (42.8-82.8); PLATELET COUNT 345 K/MM3 (134-434); RBC 4.39 M/mm3 (3.60-5.2); RDW 13.3 % (11.6-15.6); WHITE BLOOD COUNT 12.6 K/mm3 (4.0-10.8)
[2020-09-04 19:55] VITALS: BP 154/70; PULSE 97
[2020-09-04 20:16] LABS: ALBUMIN 4.5 g/dl (3.4-5.0); BILIRUBIN,TOTAL 0.7 mg/dl (0.2-1); CALCIUM 9.9 mg/dl (8.5-10); CREATININE 0.9 mg/dl (0.55-1.3); TOT PROT 7.4 g/dl (6.4-8.2)
[2020-09-05] MEDS ORDERED: AZITHROMYCIN 250 MG TABLET PO ONE (00:42)
[2020-09-05] MEDS ORDERED: AZITHROMYCIN 250 MG TABLET ONE (00:44)
== END 2020-09-05 00:49 | disposition home or self-care (01) ==
LOC: FER 19:18
DX: J20.9 Acute bronchitis, unspecified (principal)
CPT/HCPCS: 36415; 71045-TC-FY; 71275-TC; 80053; 82550; 82553; 84484; 85025; 85379; 93005; 99284-25; C9803; Q9967; U0003

== ENCOUNTER 2021-08-19 13:14 | Emergency (ER) | payer OTHER, BC ==
[2021-08-19 13:30] VITALS: BP 141/65; PULSE 75; TEMP 97.8; BMI 30.9
[2021-08-19 15:29] LABS: ALBUMIN 4.3 g/dl (3.4-5.0); BILIRUBIN,TOTAL 0.7 mg/dl (0.2-1); CALCIUM 10.3 mg/dl (8.5-10); CREATININE 0.8 mg/dl (0.55-1.3); TOT PROT 7.4 g/dl (6.4-8.2)
[2021-08-19 16:21] LABS: EPITHELIAL CELLS FEW /hpf
[2021-08-19 16:40] LABS: BASO % 0.7 % (0-2.0); EOS % 1.3 % (0-4.5); HEMATOCRIT 37.7 % (32.4-45.2); HEMOGLOBIN 12.8 GM/dL (10.7-15.3); LYMPH % 19.3 % (8-40); MCH 28.6 pg (25.7-33.7); MEAN CELL VOLUME 84.1 fl (80-96); MONO % 8.1 % (3.8-10.2); NEUT % 70.6 % (42.8-82.8); PLATELET COUNT 316 10^3/uL (134-434); RBC 4.48 M/mm3 (3.60-5.2); RDW 14.5 % (11.6-15.6); WHITE BLOOD COUNT 9.9 K/mm3 (4.0-10.0)
== END 2021-08-19 18:55 | disposition home or self-care (01) ==
LOC: FER 13:14
PROC: 3E0333Z Introduction of Anti-inflammatory into Peripheral Vein, Percutaneous Approach (ICD-10-PCS; principal; 2021-08-19)
PROC: 3E03329 Introduction of Other Anti-infective into Peripheral Vein, Percutaneous Approach (ICD-10-PCS; 2021-08-19)
DX: M54.50 Low back pain, unspecified (principal); R10.84 Generalized abdominal pain
CPT/HCPCS: 36415; 74177-TC; 80053; 81003; 81015; 83690; 85025; 87086; 87186; 93005; 99285-25; C9803; J0131; U0003; U0005

== ENCOUNTER 2022-03-19 15:00 | Emergency (ER) | payer OTHER, BC ==
[2022-03-19 15:16] VITALS: BMI 34.0
[2022-03-19 17:40] LABS: HEMATOCRIT 39.9 % (32.4-45.2); HEMOGLOBIN 13.6 G/dL (10.7-15.3); MCH 29.5 pg (25.7-33.7); MCHC 34.1 g/dl (32.0-36.0); MEAN CELL VOLUME 86.4 fl (80-96); MEAN PLT VOLUME 8.7 fl (7.5-11.1); PLATELET COUNT 336.2 10^3/uL (134-434); RBC 4.62 10^6/uL (3.60-5.2); RDW 14.8 % (11.6-15.6); WHITE BLOOD COUNT 14.3 10^3/uL (4.0-10.8)
[2022-03-19 17:49] LABS: EPITHELIAL CELLS FEW /hpf
[2022-03-19 17:53] LABS: PLATELET ESTIMATE ADEQUATE
[2022-03-19 18:31] LABS: ALBUMIN 4.1 g/dl (3.4-5.0); BILIRUBIN,TOTAL 0.6 mg/dl (0.2-1); CALCIUM 9.6 mg/dl (8.5-10); CREATININE 0.9 mg/dl (0.55-1.3); TOT PROT 7.2 g/dl (6.4-8.2)
[2022-03-19 19:09] VITALS: BP 144/71; PULSE 73; TEMP 98.7
[2022-03-19] MEDS ORDERED: PIPERACILLIN/TAZOB 2.25 GM 2.25 GM in DEXTROSE 5%-WATER - 50 ML IVPB ONE (20:18)
[2022-03-19] MEDS ORDERED: PIPERACILLIN/TAZOBACTAM 4.5 GM VIAL IVPB ONE (20:30)
[2022-03-19] MEDS ORDERED: SODIUM CHLORIDE 500 ML IV STA (20:33)
== END 2022-03-19 21:12 | disposition left against medical advice (07) ==
LOC: FER 15:00
PROC: 3E03329 Introduction of Other Anti-infective into Peripheral Vein, Percutaneous Approach (ICD-10-PCS; principal; 2022-03-19)
PROC: 3E0337Z Introduction of Electrolytic and Water Balance Substance into Peripheral Vein, Percutaneous Approach (ICD-10-PCS; 2022-03-19)
DX: K92.1 Melena (principal)
CPT/HCPCS: 36415; 74177-TC; 80053; 81003; 81015; 82272; 85025; 86850; 86900; 86901; 93005; 96361; 96365; 99285-25; C9803-CS; Q9967; U0003; U0005

== ENCOUNTER 2022-10-07 16:16 | Observation (INO) | payer OTHER, BC ==
[2022-10-07] MEDS ORDERED: LIDOCAINE 5% TOPICAL PATCH TP ONE (16:41)
[2022-10-07] MEDS ORDERED: ACETAMINOPHEN 1000 MG/100 ML BAG IVPB ONE (16:41)
[2022-10-07 17:29] LABS: HEMATOCRIT 35.3 % (32.4-45.2); HEMOGLOBIN 12.1 G/dL (10.7-15.3); MCH 30.5 pg (25.7-33.7); MCHC 34.3 g/dl (32.0-36.0); MEAN CELL VOLUME 88.8 fl (80-96); MEAN PLT VOLUME 8.5 fl (7.5-11.1); PLATELET COUNT 321.4 10^3/uL (134-434); RBC 3.98 10^6/uL (3.60-5.2); RDW 14.1 % (11.6-15.6); WHITE BLOOD COUNT 11.7 10^3/uL (4.0-10.8)
[2022-10-07] MEDS ORDERED: ACETAMINOPHEN INJECTION 100 ML IVPB ONE (17:49)
[2022-10-07] MEDS ORDERED: LIDOCAINE 5% TOPICAL PATCH ONE (17:50)
[2022-10-07 18:22] LABS: ALBUMIN 4.1 g/dl (3.4-5.0); BILIRUBIN,TOTAL 0.4 mg/dl (0.2-1); CALCIUM 9.5 mg/dl (8.5-10); CREATININE 0.9 mg/dl (0.55-1.3); TOT PROT 7.2 g/dl (6.4-8.2)
[2022-10-07 20:35] VITALS: BMI 32.8
[2022-10-07] MEDS ORDERED: DICYCLOMINE HCL 10 MG CAPSULE PO PRN (21:06)
[2022-10-07] MEDS ORDERED: PANTOPRAZOLE SODIUM 40 MG VIAL IVPUSH ONE (21:11)
[2022-10-07] MEDS ORDERED: ACETAMINOPHEN 1000 MG/100 ML BAG IVPB PRN ×2 (21:12→23:00)
[2022-10-07] MEDS ORDERED: CYCLOBENZAPRINE HCL 5 MG TABLET PO PRN (21:18)
[2022-10-07] MEDS ORDERED: ASPIRIN 81 MG CHEWABLE TABLETS PO ONE (21:18)
[2022-10-07] MEDS: metoPROLOL SUCCINATE 25 MG TAB.SR.24H (FP) PO SCH (21:43)
[2022-10-07] MEDS: HEPARIN NA (PORCINE) 5,000 UNITS/ML 1ML VIAL SQ SCH (21:47)
[2022-10-07] MEDS: LIDOCAINE PATCH REMOVAL MC SCH (21:52)
[2022-10-08] MEDS: INSULIN SLIDING SCALE (NOVOLOG) 1 VIAL SQ SCH ×4 (06:32→21:02)
[2022-10-08 08:58] LABS: HEMATOCRIT 35.2 % (32.4-45.2); HEMOGLOBIN 11.7 G/dL (10.7-15.3); MCH 29.8 pg (25.7-33.7); MCHC 33.3 g/dl (32.0-36.0); MEAN CELL VOLUME 89.3 fl (80-96); MEAN PLT VOLUME 8.3 fl (7.5-11.1); RBC 3.94 10^6/uL (3.60-5.2); WHITE BLOOD COUNT 9.8 10^3/uL (4.0-10.8)
[2022-10-08] MEDS: ESCITALOPRAM OXALATE 10 MG TABLET PO SCH (09:13)
[2022-10-08] MEDS: ASPIRIN COATED 81 MG TABLET.EC PO SCH (09:13)
[2022-10-08] MEDS: HEPARIN NA (PORCINE) 5,000 UNITS/ML 1ML VIAL SQ SCH ×2 (09:13→21:00)
[2022-10-08 09:19] LABS: CALCIUM 9.4 mg/dl (8.5-10); CREATININE 0.9 mg/dl (0.55-1.3)
[2022-10-08] MEDS: LOSARTAN POTASSIUM 50 MG TABLET PO SCH (14:04)
[2022-10-08] MEDS: metoPROLOL SUCCINATE 25 MG TAB.SR.24H (FP) PO SCH ×2 (14:05→21:00)
[2022-10-08] MEDS: amLODIPine BESYLATE 10 MG TABLET (FP) PO SCH (14:05)
[2022-10-08] MEDS: HYDROCHLOROTHIAZIDE 25 MG TABLET (FP) PO SCH (14:05)
[2022-10-08] MEDS: ENALAPRIL MALEATE 10 MG TABLET PO SCH (14:05)
[2022-10-08] MEDS: LIDOCAINE PATCH REMOVAL MC SCH (21:00)
[2022-10-08] MEDS ORDERED: ATORVASTATIN CA 40 MG TABLET (FP) PO SCH (22:00)
[2022-10-08] MEDS ORDERED: ATORVASTATIN CA 10 MG TABLET (FP) PO SCH (22:00)
[2022-10-09] MEDS: INSULIN SLIDING SCALE (NOVOLOG) 1 VIAL SQ SCH ×2 (06:27→11:05)
[2022-10-09 08:25] LABS: ALBUMIN 3.7 g/dl (3.4-5.0); BILIRUBIN,TOTAL 0.5 mg/dl (0.2-1); CALCIUM 9.4 mg/dl (8.5-10); CREATININE 0.8 mg/dl (0.55-1.3); TOT PROT 6.5 g/dl (6.4-8.2)
[2022-10-09 09:17] LABS: HEMOGLOBIN 11.7 GM/dL (10.7-15.3); MCH 30.1 pg (25.7-33.7); MCHC 34.3 g/dl (32.0-36.0); MEAN CELL VOLUME 87.6 fl (80-96); MEAN PLT VOLUME 8.7 fl (7.5-11.1); PLATELET COUNT 311 10^3/uL (134-434); RBC 3.88 M/mm3 (3.60-5.2); RDW 14.4 % (11.6-15.6); WHITE BLOOD COUNT 8.3 K/mm3 (4.0-10.0)
[2022-10-09 09:30] VITALS: RESP 18
[2022-10-09] MEDS: HEPARIN NA (PORCINE) 5,000 UNITS/ML 1ML VIAL SQ SCH (09:32)
[2022-10-09] MEDS: ASPIRIN COATED 81 MG TABLET.EC PO SCH (09:32)
[2022-10-09] MEDS: ESCITALOPRAM OXALATE 10 MG TABLET PO SCH (09:32)
[2022-10-09] MEDS: LOSARTAN POTASSIUM 50 MG TABLET PO SCH (09:33)
[2022-10-09] MEDS: ENALAPRIL MALEATE 10 MG TABLET PO SCH (09:33)
[2022-10-09] MEDS: metoPROLOL SUCCINATE 25 MG TAB.SR.24H (FP) PO SCH (09:33)
[2022-10-09] MEDS: amLODIPine BESYLATE 10 MG TABLET (FP) PO SCH (09:33)
[2022-10-09] MEDS: HYDROCHLOROTHIAZIDE 25 MG TABLET (FP) PO SCH (09:33)
[2022-10-09] MEDS ORDERED: LOSARTAN POTASSIUM 50 MG TABLET PO SCH (09:41)
[2022-10-09 14:09] VITALS: BP 123/60; PULSE 73; TEMP 98.9
[2022-10-09] MEDS ORDERED: metoPROLOL SUCCINATE 25 MG TAB.SR.24H (FP) PO SCH (22:00)
[2022-10-10] MEDS ORDERED: LOSARTAN POTASSIUM 50 MG TABLET PO SCH (10:00)
== END 2022-10-09 14:40 | disposition home or self-care (01) ==
LOC: FER 16:16 → FM/S 18:42 → UNDODISOB 10-09 11:50
PROVIDERS: ADMIT Internal Medicine
PROC: 3E023GC Introduction of Other Therapeutic Substance into Muscle, Percutaneous Approach (ICD-10-PCS; principal; 2022-10-07)
DX: R07.9 Chest pain, unspecified (principal); W18.39XA Other fall on same level, initial encounter; Y93.89 Activity, other specified; Y92.009 Unspecified place in unspecified non-institutional (private) residence as the place of occurrence of the external cause; K21.9 Gastro-esophageal reflux disease without esophagitis; K58.9 Irritable bowel syndrome, unspecified; I10 Essential (primary) hypertension; E78.5 Hyperlipidemia, unspecified; E11.9 Type 2 diabetes mellitus without complications; Z85.850 Personal history of malignant neoplasm of thyroid; K76.0 Fatty (change of) liver, not elsewhere classified; Z90.89 Acquired absence of other organs; F41.9 Anxiety disorder, unspecified
CPT/HCPCS: 0241U-QW; 36415; 71046-TC-FY; 71101-TC-LT-FY; 71250-TC; 80048; 80053; 82550; 82962; 84484; 85027; 85651; 86140; 93005; 96372; 96374; 96376; 99285-25; G0378; J1644

== ENCOUNTER 2023-02-19 12:04 | Emergency (ER) | payer OTHER, BC ==
[2023-02-19 12:25] VITALS: TEMP 98.6; BMI 32.8
[2023-02-19] MEDS ORDERED: SODIUM CHLORIDE 1,000 ML IV STA (12:38)
[2023-02-19] MEDS ORDERED: LIDOCAINE 5% TOPICAL PATCH TP ONE (12:38)
[2023-02-19] MEDS ORDERED: ACETAMINOPHEN 1000 MG/100 ML BAG IVPB ONE (12:38)
[2023-02-19 12:52] LABS: HEMATOCRIT 40.4 % (32.4-45.2); HEMOGLOBIN 13.5 G/dL (10.7-15.3); MCH 29.2 pg (25.7-33.7); MCHC 33.4 g/dl (32.0-36.0); MEAN CELL VOLUME 87.3 fl (80-96); MEAN PLT VOLUME 8.3 fl (7.5-11.1); RBC 4.63 10^6/uL (3.60-5.2); RDW 14.9 % (11.6-15.6); WHITE BLOOD COUNT 10.2 10^3/uL (4.0-10.8)
[2023-02-19] MEDS ORDERED: ACETAMINOPHEN INJECTION 100 ML IVPB ONE ×2 (12:52→16:27)
[2023-02-19] MEDS ORDERED: LIDOCAINE 5% TOPICAL PATCH ONE (12:57)
[2023-02-19 13:13] LABS: ALBUMIN 4.1 g/dl (3.4-5.0); BILIRUBIN,TOTAL 0.4 mg/dl (0.2-1); BLOOD UREA NITROGEN 18.1 mg/dl (7-18); CALCIUM 9.6 mg/dl (8.5-10.1); CREATININE 0.7 mg/dl (0.6-1.3); POTASSIUM 4.3 mmol/L (3.5-5.1); SGOT/AST 14.2 U/L (15-37); SGPT/ALT 10.4 U/L (7-52); TOT PROT 6.6 g/dl (6.4-8.2)
[2023-02-19] MEDS ORDERED: METHOCARBAMOL 500 MG TABLET PO ONE (14:37)
[2023-02-19] MEDS ORDERED: METHOCARBAMOL 500 MG TABLET ONE (14:42)
[2023-02-19 14:45] LABS: EPITHELIAL CELLS FEW /hpf
[2023-02-19] MEDS ORDERED: CEFTRIAXONE 1 GM in DEXTROSE 5%-WATER - 100 ML IVPB ONE (14:56)
[2023-02-19] MEDS ORDERED: cefTRIAXone SODIUM 1 GM VIAL ONE (15:25)
[2023-02-19] MEDS ORDERED: oxyCODONE HCL 5 MG TABLET PO ONE (16:26)
[2023-02-19] MEDS ORDERED: oxyCODONE HCL 5 MG TABLET ONE (16:33)
[2023-02-19 17:41] VITALS: BP 121/74; PULSE 76; RESP 16
[2023-02-19] MEDS ORDERED: LIDOCAINE PATCH REMOVAL MC SCH (22:00)
== END 2023-02-19 17:40 | disposition home or self-care (01) ==
LOC: FER 12:04
PROC: 3E03329 Introduction of Other Anti-infective into Peripheral Vein, Percutaneous Approach (ICD-10-PCS; principal; 2023-02-19)
PROC: 3E033NZ Introduction of Analgesics, Hypnotics, Sedatives into Peripheral Vein, Percutaneous Approach (ICD-10-PCS; 2023-02-19)
PROC: 3E0337Z Introduction of Electrolytic and Water Balance Substance into Peripheral Vein, Percutaneous Approach (ICD-10-PCS; 2023-02-19)
DX: R10.30 Lower abdominal pain, unspecified (principal); N39.0 Urinary tract infection, site not specified; M54.40 Lumbago with sciatica, unspecified side
CPT/HCPCS: 36415; 74177-TC; 80053; 81003; 81015; 85027; 87086; 87186; 99285-25; Q9967

== ENCOUNTER 2023-03-20 04:58 | Day surgery (SDC) | payer OTHER, BC ==
[2023-03-15 15:12] VITALS: BMI 32.8
[2023-03-20 09:44] VITALS: RESP 20
[2023-03-20] MEDS ORDERED: LIDOCAINE HCL 1% PRESERVATIVE FREE - 30ML VIAL IJ ONE (10:12)
[2023-03-20] MEDS ORDERED: IOHEXOL 180 MG/1 ML ML IJ ONE (10:12)
[2023-03-20] MEDS ORDERED: ACETAMINOPHEN 500 MG TABLET (FP) PO PRN (11:02)
[2023-03-20 11:17] VITALS: BP 129/62; PULSE 76; TEMP 97.8
== END 2023-03-20 11:14 | disposition home or self-care (01) ==
LOC: JASU-SURG 04:58
PROVIDERS: ATTEND Pain Medicine Pain Medicine
PROC: 3E0R3BZ Introduction of Anesthetic Agent into Spinal Canal, Percutaneous Approach (ICD-10-PCS; 2023-03-20)
PROC: 3E0R33Z Introduction of Anti-inflammatory into Spinal Canal, Percutaneous Approach (ICD-10-PCS; principal; 2023-03-20 11:15)
DX: M48.061 Spinal stenosis, lumbar region without neurogenic claudication (principal); M54.16 Radiculopathy, lumbar region
CPT/HCPCS: 76000-TC-FY

== ENCOUNTER 2023-04-20 04:06 | Day surgery (SDC) | payer OTHER, BC ==
[2023-04-18 11:11] VITALS: BMI 32.8
[~2023-04-20 04:06] MED LIST: ACETAMINOPHEN 500 MG TABLET (FP) PO PRN; DEXAMETHASONE SOD PHOSPHATE 10 MG/1 ML VIAL IM ONE; IOHEXOL 180 MG/1 ML ML IJ ONE; LIDOCAINE HCL 1% PRESERVATIVE FREE - 30ML VIAL IJ ONE
[2023-04-20] MEDS ORDERED: ACETAMINOPHEN 500 MG TABLET (FP) PO PRN (08:52)
[2023-04-20] MEDS ORDERED: IOHEXOL 180 MG/1 ML ML IJ ONE (11:41)
[2023-04-20] MEDS ORDERED: LIDOCAINE HCL 1% PRESERVATIVE FREE - 30ML VIAL IJ ONE (11:41)
[2023-04-20] MEDS ORDERED: DEXAMETHASONE SOD PHOSPHATE 10 MG/1 ML VIAL IM ONE (11:42)
[2023-04-20 12:53] VITALS: BP 140/63; PULSE 64; RESP 18; TEMP 98
== END 2023-04-20 12:45 | disposition home or self-care (01) ==
LOC: JASU-SURG 04:06
PROVIDERS: ATTEND Pain Medicine Pain Medicine
PROC: 3E0R3BZ Introduction of Anesthetic Agent into Spinal Canal, Percutaneous Approach (ICD-10-PCS; 2023-04-20)
PROC: 3E0R33Z Introduction of Anti-inflammatory into Spinal Canal, Percutaneous Approach (ICD-10-PCS; principal; 2023-04-20 11:45)
DX: M54.16 Radiculopathy, lumbar region (principal); M48.061 Spinal stenosis, lumbar region without neurogenic claudication
CPT/HCPCS: 76000-TC-FY; J1100

== ENCOUNTER 2023-05-18 12:25 | Emergency (ER) | payer OTHER, BC ==
[2023-05-18 12:43] VITALS: BP 122/96; PULSE 63; RESP 19; TEMP 99; BMI 31.4
[2023-05-18] MEDS ORDERED: ACETAMINOPHEN 325 MG TABLET (FP) PO ONE ×2 (13:10→13:13)
[2023-05-18] MEDS ORDERED: NAPROXEN 500 MG TABLET PO ONE (13:12)
[2023-05-18] MEDS ORDERED: ACETAMINOPHEN 500 MG TABLET (FP) ONE (13:15)
[2023-05-18] MEDS ORDERED: NAPROXEN 500 MG TABLET ONE (13:15)
== END 2023-05-18 16:20 | disposition home or self-care (01) ==
LOC: FER 12:25
DX: M25.571 Pain in right ankle and joints of right foot (principal); R22.41 Localized swelling, mass and lump, right lower limb; M71.21 Synovial cyst of popliteal space [Baker], right knee
CPT/HCPCS: 73562-TC-RT-FY; 93971-TC; 99284-25